=== PATIENT | female | born 1940 | race Caucasian/White ===

== ENCOUNTER → 2016-08-28 10:05 | Day surgery (SDC) | payer MEDICARE, OTHER ==
[~2016-08-28] VITALS: Ht 170.2 cm; Wt 96.4 kg
[2016-08-28 10:49] VITALS: BP 112/83; Ht 170.2 cm; Wt 96.4 kg
== END | disposition home or self-care (01) ==
LOC: D.OPS 10:05
DX: M53.3 Sacrococcygeal disorders, not elsewhere classified (principal)

== ENCOUNTER 2016-09-05 12:56 | Day surgery (SDC) | payer MEDICARE, OTHER ==
[~2016-09-05] VITALS: Ht 170.2 cm; Wt 96.4 kg
[2016-09-05 13:53] VITALS: BP 105/59; Ht 170.2 cm; Wt 96.4 kg
--- NOTE | 2016-09-05 14:37 | NUR ---
1430 SI JOINT INJECTION DONE PER DR. COOPER. PT. TOLERATED WITHOUT PROBLEMS. RELEASED AMB.
== END 2016-09-05 14:35 | disposition home or self-care (01) ==
LOC: D.OPS 12:56
DX: M53.3 Sacrococcygeal disorders, not elsewhere classified (principal)

== ENCOUNTER → 2016-09-12 11:06 | Day surgery (SDC) | payer MEDICARE, OTHER ==
[2016-09-05 13:53] VITALS: BMI 33.3
== END | disposition home or self-care (01) ==
LOC: D.OPS 11:06
DX: M54.5 Low back pain (principal)

== ENCOUNTER 2016-09-18 12:03 | Day surgery (SDC) | payer MEDICARE, OTHER ==
[2016-09-18 16:48] VITALS: Ht 170.2 cm
== END 2016-09-18 13:05 | disposition home or self-care (01) ==
LOC: D.OPS 12:03
DX: M51.16 Intervertebral disc disorders with radiculopathy, lumbar region (principal); M53.3 Sacrococcygeal disorders, not elsewhere classified
CPT/HCPCS: 62322; G0260

== ENCOUNTER → 2017-05-02 07:23 | Outpatient (CLI) | payer MEDICARE, OTHER ==
[~2017-05-02 07:23] MED LIST: ATIVAN2 MG/ML IV; CARDIZEM30 MG PO; COLCRYS0.6 MG PO; CYMBALTA30 MG PO; ELIQUIS5 MG PO; NORVASC5 MG PO; OMEPRAZOLE40 MG PO; ONDANSETRON4 MG/2 M3 IV
== END | disposition home or self-care (01) ==
LOC: D.OPS 07:23 → D.RAD 08:00
DX: M53.3 Sacrococcygeal disorders, not elsewhere classified (principal); Z01.812 Encounter for preprocedural laboratory examination

== ENCOUNTER → 2017-05-16 08:22 | Outpatient (CLI) | payer MEDICARE, OTHER | END | disposition home or self-care (01) | LOC: D.OPS 08:22 → D.RAD 09:00 | DX: M53.3 Sacrococcygeal disorders, not elsewhere classified (principal) ==

== ENCOUNTER → 2017-06-12 09:27 | Outpatient (CLI) | payer MEDICARE, OTHER | END | disposition home or self-care (01) | LOC: D.MRI 09:27 | DX: M79.672 Pain in left foot (principal) ==

== ENCOUNTER → 2017-06-14 08:34 | Outpatient (CLI) | payer MEDICARE, OTHER | END | disposition home or self-care (01) | LOC: D.SP 08:34 | DX: M54.16 Radiculopathy, lumbar region (principal) ==

== ENCOUNTER 2017-07-22 13:00 | Inpatient (IN) | payer MEDICARE, OTHER ==
[~2017-07-22] VITALS: Ht 170.2 cm; Wt 91.7 kg
--- NOTE | ~2017-07-22 | HEMODYNAMI ---
PATIENT:JORGE LINTON MEDICAL RECORD: [id number] : 44 LOCATION:[facility] D.2311 ADMISSION DATE: 07/23/17 Generatedon:07/26/201715:31 Patient name: JORGE LINTON Patient #: [id number] SSN: : Date of study: 07/26/2017 Page: Of Hemodynamic Procedure Report Patient Data Patient Demographics Procedure consent was obtained First Name: JORGE Gender: Female Last Name: : 1940 [facility] Initial: CY Age: 76 year(s) Patient #: [id number] Race: Unknown Additional ID: [id number] Contact details Address: [address] [place] [address] point State: [place] City: [place] Zip code: [address] Past Medical History Allergies Allergen Reaction Date Comments Reported Sulfa drugs 07/24/2017 Sulfa drugs 07/25/2017 Sulfa drugs 07/26/2017 Admission Admission Data Admission Date: 07/23/2017 Admission Time: 14:53 Room #: D.2311 Height (in.): 67 BSA: 2.02 (m2) Height (cm.): 170.18 BMI: 31.17 (kg/m2) Weight (lbs.): 199 Weight (kg.): 90.26 Procedure Procedure Types Cath Procedure Peripheral Cath Diagnostic Procedure Cath Peripheral Abd/Extremity Peripheral vascular Intervention Thrombolysis/Thrombectomy Thrombolysis Catheter Removal Procedure Description Procedure Date Procedure Date: 07/26/2017 Procedure Start Time: 14:41 Procedure Staff Name Function Brian Evangelista MD Performing Physician Emani Sadler RT Irrigation Tax Assessor Collector Emani Sadler RT Monitor Noemi Ceballos RN Nurse Roopa Solo RN Nurse Connie Valdez RT Scrub Procedure Data Cath Procedure Fluoroscopy Diagnostic fluoroscopy Total fluoroscopy Time: 0.9 time: 0.9 min min Diagnostic fluoroscopy Total fluoroscopy dose: 60 dose: 60 mGy mGy Contrast Material Contrast Material Type Amount (ml) Isovue 300 40 Procedure Medications Medication Administration Route Dosage Lidocaine 1% added to field 20 Heparin Flush Bag added to field 2 bags (1000units/500ml NS) Oxygen NC 3 l/min Ancef (1Gm/50ml NS) I.V.P.B 1 g Versed I.V. 1 mg Fentanyl I.V. 50 mcg Versed I.V. 1 mg Fentanyl I.V. 50 mcg Hemodynamics Rest BSA: 2.02 (m2) O2 Consumption: Estimated: 221.86 (ml/min) O2 Consumption indexed : Estimated:109.83 (ml/min/m) Heart Rate: 119 (bpm) Snapshots Pre Cath Intra NCS Post Cath Vital Signs Time Heart Resp SPO2 etCO2 NIBP (mmHg) Rhythm Pain Sedation Rate (ipm) (%) (mmHg) Status Level (bpm) 14:16:43 120 19 94 34.4 159/85(120) NSR 0 (11) 10(A) , No pain 14:20:59 119 16 95 8.9 162/92(122) NSR 0 (11) 10(A) , No pain 14:25:13 116 19 99 0 155/102(122) NSR 0 (11) 10(A) , No pain 14:29:25 115 18 95 13.4 161/96(122) NSR 0 (11) 10(A) , No pain 14:33:39 109 16 93 0 149/88(117) NSR 0 (11) 10(A) , No pain 14:37:51 110 26 93 9.7 153/87(118) NSR 0 (11) 10(A) , No pain 14:42:05 111 17 93 2.9 152/83(115) NSR 0 (11) 10(A) , No pain 14:46:19 114 24 89 2.9 162/94(120) NSR 0 (11) 8(A) , No pain 14:50:26 112 16 86 16.4 149/89(106) NSR 0 (11) 8(A) , No pain 14:54:34 109 17 94 1.4 134/83(101) NSR 0 (11) 8(A) , No pain 14:58:44 116 23 85 0.7 141/79(108) NSR 0 (11) 8(A) , No pain 15:02:54 112 20 87 0 139/81(104) NSR 0 (11) 8(A) , No pain 15:07:02 115 23 88 0 135/87(103) NSR 0 (11) 8(A) , No pain 15:11:12 112 20 90 8.2 142/86(105) NSR 0 (11) 8(A) , No pain 15:15:18 108 23 90 0.7 144/88(103) NSR 0 (11) 8(A) , No pain 15:19:27 107 25 91 0.7 146/86(106) NSR 0 (11) 8(A) , No pain 15:23:40 111 21 90 11.9 143/88(101) NSR 0 (11) 8(A) , No pain 15:27:54 112 18 93 1.4 152/88(120) NSR 0 (11) 8(A) , No pain Medications Time Medication Route Dose Verified Delivered Reason Notes Effe ctiveness by by 14:27:37 Lidocaine 1% added 20ml Brian Torres used for to vial Tonja Evangelista procedure field MD COHEN 14:27:51 Heparin Flush added 2 Brian Torres used for Bag to bags Tonja Evangelista procedure (1000units/500ml field MD COHEN NS) 14:28:06 Oxygen NC 3 Brian Blas used for l/min Tonja Solo RN procedure 14:42:28 Ancef (1Gm/50ml I.V.P.B 1 g Brian Blas NS) Tonja Solo RN, MD 14:42:40 Versed I.V. 1 mg Brian Blas for Tonja Solo RN sedation 14:42:50 Fentanyl I.V. 50 Brian Blas for mcg Tonja Solo RN sedation 14:56:37 Versed I.V. 1 mg Brian Blas for Tonja Solo RN sedation 14:56:44 Fentanyl I.V. 50 Brian Blas for mcg Tonja Solo RN sedation Procedure Log Time Note 13:50:57 Patient Height : 67 inches 13:50:57 Patient Weight : 199 lbs 13:51:22 Use device set IR Diagnostic 14:09:24 Time tracking: Regular hours (M-F 7:00 - 5:00) 14:09:32 Plan of Care:Hemodynamics will remain stable., Cardiac rhythm will remain stable., Comfort level will be maintained., Respiratory function will remain adequate., Patient/ family verbilizes understanding of procedure., Procedure tolerated without complication., Recovers from procedure without complications.. 14:15:27 Patient received from ICU to IR Alert and oriented. Tansferred to table in Supine position. 14:15:31 Correct patient and procedure confirmed by team. 14:15:33 Signed procedure consent form obtained from patient. 14:15:34 ECG and BP/O2 sat monitors applied to patient. 14:15:35 Vital chart was started 14:15:36 Baseline sample Acquired. 14:15:38 Full Disclosure recording started 14:15:38 - 14:15:44 H&P Date Dictated: 07/26/2017 Within 30 days and on chart.. 14:15:52 Family unavailable. 14:15:54 Patient NPO since Midnight. 14:16:10 Patient allergic to Sulfa drugs 14:16:18 Is the patient allergic to Iodine/contrast media? No. 14:16:23 Is patient on blood thinner?Yes 14:16:31 Patient diabetic? No. 14:16:35 - 14:16:35 ----Pre-sedation anethsthesia assessment.---- 14:16:39 Previous problem with sedation/anesthesia? No ? 14:16:42 Snore? Yes 14:16:46 Sleep apnea? No 14:16:48 Deviated septum? No 14:16:49 Opens mouth fully? Yes 14:16:50 Sticks out tongue? Yes 14:16:55 Airway obstruction? No ? 14:17:00 Dentures? No ? 14:17:03 - 14:17:10 Pre procedure: right dorsailis pedis pulse Doppler 14:17:14 Pre procedure: left dorsailis pedis pulse Doppler 14:17:18 Pre procedure: right posterior tibial pulse Doppler 14:17:22 Pre procedure: left posterior tibial pulse Doppler 14:17:36 IV patent on arrival in left antecubital with Lactated Ringers at KVO. 14:17:55 Left groin area was prepped with betadine and draped in sterile fashion 14:18:00 - 14:18:02 Tegaderm 4 x 4 (1626W) opened to sterile field. 14:18:02 Sterile Angiographic Pack opened to sterile field. 14:18:03 Bag Decanter (2002S) opened to sterile field. 14:27:37 Lidocaine 1% 20ml vial added to field was administered by Brian soares MD; used for procedure; 14:27:51 Heparin Flush Bag (1000units/500ml NS) 2 bags added to field was administered by Brian Evangelista MD; used for procedure; 14:28:06 Oxygen 3 l/min NC was administered by Roopa Solo RN; used for procedure; 14:37:14 Physician arrived 14:40:54 --------ALL STOP TIME OUT------ 14:40:55 Final Timeout: patient, procedure, and site verified with staff and physician. All members of the team are in agreement. 14:41:05 Procedure started. 14:41:10 Local anesthetic to left femerol artery with Lidocaine 1% by Brian Evangelista MD.INITIAL ACCESS ONLY 14:42:28 Ancef (1Gm/50ml NS) 1 g I.V.P.B was administered by Roopa Solo RN; ; 14:42:40 Versed 1 mg I.V. was administered by Roopa Solo RN; for sedation; 14:42:50 Fentanyl 50 mcg I.V. was administered by Roopa Solo RN; for sedation ; 14:51:49 BENTSON 145cm wire ([id number]) opened to sterile field. 14:51:50 St Scout 7FR sheath opened to sterile field. 14:52:08 EXOSEAL 7Fr (EX700) opened to sterile field. 14:52:38 Angiogram performed in multiple views. 14:53:38 Procedure ended.(Physican Out) 14:53:44 Fluoroscopy time 00.90 minutes. 14:53:49 Fluoroscopy dose: 60 mGy 14:53:49 Flurop Dose total: 60 14:53:53 Contrast amount:Isovue 300 40ml. 14:53:56 Procedure and supply charges have been captured, reviewed, submitted an d are correct. 14:56:37 Versed 1 mg I.V. was administered by Roopa Solo RN; for sedation; 14:56:44 Fentanyl 50 mcg I.V. was administered by Roopa Solo RN; for sedation ; 15:30:44 Report given to ICU. 15:30:55 Patient transfered to ICU with Bed. 15:31:38 Vital chart was stopped Device Usage Item Name Manufacture Quantity Catalog Hospital Part Current Minimal Lot# / Number Charge Number Stock Stock Serial# Code Tegaderm 4 x 3M 1 [id number] [id number] 5 4 (1626W) Sterile Cardinal 1 [id number] [id number] 061706 5 Angiographic Health Pack Bag Decanter Microtek 1 2001S 922755 13276 176578 5 (2001S) Medical Inc. BENTSON Cook Medical 1 [id number] 241010 701184 5 9862382 145cm wire (U23938) St Scout 7FR St Scout 1 053738 859618 575678 5 2686301 sheath EXOSEAL 7Fr Cardinal 1 EX700 140974 227197 935567 5 [id number] (EX700) Health Signature Audit [place] Stage Time Signature Unsigned Intra-Procedure 07/26/2017 Emani Sadler 3:31:35 PM RT(R) Signatures Monitor : Emani Sadler RT Signature : Date : Time : [address] [place] [address]
--- NOTE | ~2017-07-22 | HEMODYNAMI ---
PATIENT:JORGE LINTON MEDICAL RECORD: [id number] : 44 LOCATION:[place] [address] ADMISSION DATE: 07/23/17 Generatedon:07/25/201716:38 Patient name: JORGE LINTON Patient #: [id number] SSN: : Date of study: 07/25/2017 Page: Of Hemodynamic Procedure Report Patient Data Patient Demographics Procedure consent was obtained First Name: JORGE Gender: Female Last Name: : 1940 [facility] Initial: CY Age: 76 year(s) Patient #: [id number] Race: Unknown Additional ID: [id number] Contact details Address: [address] [place] [address] point State: [place] City: [place] Zip code: [address] Past Medical History Allergies Allergen Reaction Date Comments Reported Sulfa drugs 07/24/2017 Sulfa drugs 07/25/2017 Admission Admission Data Admission Date: 07/23/2017 Admission Time: 14:53 Room #: D[facility] Height (in.): 67 BSA: 2.02 (m2) Height (cm.): 170.18 BMI: 31.17 (kg/m2) Weight (lbs.): 199 Weight (kg.): 90.26 Procedure Procedure Types Cath Procedure Peripheral Cath Diagnostic Procedure Cath Peripheral Peripheral vascular Intervention Thrombolysis/Thrombectomy Thrombolysis Arterial Additional Day Procedure Description Procedure Date Procedure Date: 07/25/2017 Procedure Start Time: 14:48 Procedure Staff Name Function Brian Evangelista MD Performing Physician Emani Sadler RT Grain Mill Products Inspector Emani Sadler RT Monitor Noemi Ceballos RN Nurse Roopa Solo RN Nurse Elroy Evans RT Scrub Procedure Data Cath Procedure Fluoroscopy Diagnostic fluoroscopy Total fluoroscopy Time: time: 18.7 min 18.7 min Diagnostic fluoroscopy Total fluoroscopy dose: 668 dose: 668 mGy mGy Contrast Material Contrast Material Type Amount (ml) Isovue 370 0 Isovue 300 85 Procedure Medications Medication Administration Route Dosage Heparin Flush Bag added to field 2 bags (1000units/500ml NS) Versed I.V. 1 mg Fentanyl I.V. 50 mcg Oxygen NC 3 l/min Versed I.V. 1 mg Fentanyl I.V. 50 mcg Versed I.V. 1 mg Fentanyl I.V. 50 mcg unlisted medication 1 bags Heparin Bolus I.V. 3000 units Benadryl I.V. 50 mg Versed I.V. 1 mg Fentanyl I.V. 50 mcg Versed I.V. 1 mg Fentanyl I.V. 50 mcg Versed I.V. 1 mg Fentanyl I.V. 50 mcg TPA 15 Heparin Drip 500 units/hr (27455gpqnw/250 D5W) Hemodynamics Rest BSA: 2.02 (m2) O2 Consumption: Estimated: 202.2 (ml/min) O2 Consumption indexed: Estimated:100.1 (ml/min/m) Heart Rate: 93 (bpm) Snapshots Pre Cath Intra NCS Post Cath Vital Signs Time Heart Resp SPO2 etCO2 NIBP (mmHg) Rhythm Pain Status Sedation Rate (ipm) (%) (mmHg) Level (bpm) 14:39:54 92 10 97 19.5 176/98(138) NSR 0 (11) , No 10(A) pain 14:44:22 92 17 96 28.6 169/98(134) NSR 0 (11) , No 10(A) pain 14:48:42 95 15 96 23.3 168/97(132) NSR 0 (11) , No 10(A) pain 14:53:03 92 18 97 21 164/99(129) NSR 0 (11) , No 10(A) pain 14:57:23 95 19 96 20.3 166/99(140) NSR 0 (11) , No 10(A) pain 15:01:43 90 15 95 16.5 164/99(126) NSR 0 (11) , No 10(A) pain 15:06:03 95 13 96 26.3 164/99(134) NSR 0 (11) , No 10(A) pain 15:10:17 90 13 95 13.5 155/93(124) NSR 0 (11) , No 10(A) pain 15:14:33 93 13 96 20.3 154/95(126) NSR 0 (11) , No 8(A) pain 15:18:49 92 16 96 21.8 152/94(119) NSR 0 (11) , No 8(A) pain 15:23:07 93 14 96 28.5 156/100(125) NSR 2 (11) , 8(A) Uncomfortable 15:27:23 99 13 95 15.7 153/98(128) NSR 0 (11) , No 8(A) pain 15:31:37 103 16 92 19.5 155/99(132) NSR 1 (11) , Very 8(A) mild 15:35:57 100 16 94 24.8 160/102(124) NSR 1 (11) , Very 8(A) mild 15:40:20 103 8 95 18.8 162/112(136) NSR 0 (11) , No 8(A) pain 15:44:37 98 15 93 9.7 170/113(141) NSR 1 (11) , Very 8(A) mild 15:49:04 113 15 92 0 169/113(146) NSR 2 (11) , 8(A) Uncomfortable 15:53:30 111 20 94 20.3 168/111(150) NSR 2 (11) , 8(A) Uncomfortable 15:57:46 108 13 92 15.7 148/109(135) NSR 0 (11) , No 8(A) pain 16:01:54 110 14 92 18 142/102(128) NSR 0 (11) , No 8(A) pain 16:06:53 113 17 93 18.8 Measuring NSR 0 (11) , No 8(A) pain 16:07:18 111 19 93 16.5 160/107(140) NSR 1 (11) , Very 8(A) mild 16:11:32 109 17 94 17.2 156/99(127) NSR 1 (11) , Very 8(A) mild 16:15:56 111 17 94 18.8 149/128(139) NSR 1 (11) , Very 8(A) mild 16:20:55 109 16 94 18.8 Measuring NSR 1 (11) , Very 8(A) mild 16:21:21 112 15 94 10.5 182/119(154) NSR 1 (11) , Very 8(A) mild 16:25:46 110 16 94 15 160/102(139) NSR 1 (11) , Very 8(A) mild 16:30:45 110 15 93 9 Measuring NSR 1 (11) , Very 8(A) mild 16:31:11 110 15 93 12 153/111(127) NSR 1 (11) , Very 8(A) mild 16:35:23 107 13 93 15.7 152/106(137) NSR 1 (11) , Very 8(A) mild Medications Time Medication Route Dose Verified Delivered Reason Notes Ef fectiveness by by 14:50:56 Heparin Flush added 2 bags Brian Torres used for Bag to Tonja Evangelista procedure (1000units/500ml field MD COHEN NS) 14:51:29 Versed I.V. 1 mg Brian Roopa used for Tonja Solo rehabilitation psychologist 14:51:43 Fentanyl I.V. 50 mcg Brian Roopa for Tonja Solo RN sedation 14:52:01 Oxygen NC 3 l/min Brian Solo RN 15:07:07 Versed I.V. 1 mg Brian Cervantesody used for Tonja Solo rehabilitation psychologist 15:07:13 Fentanyl I.V. 50 mcg Brian Cervantesody for Tonja Solo RN sedation 15:26:46 Versed I.V. 1 mg Brian Cervantesody for Tonja Solo RN sedation 15:26:54 Fentanyl I.V. 50 mcg Brian Roopa for Tonja Blountr RN sedation 15:27:50 JETSTREAM IA 1 bags Brian Torres used for Tonja Evangelista procedure MD COHEN 15:45:45 Heparin Bolus I.V. 3000 Brian Cervantesody units Tonja Solo RN 15:45:58 Benadryl I.V. 50 mg Brian Cervantesody Tonja Solo RN 15:54:38 Versed I.V. 1 mg Brian Roopa for Tonja Blountr RN sedation 15:54:46 Fentanyl I.V. 50 mcg Brian Roopa for Tonja Blountr RN sedation 16:09:48 Versed I.V. 1 mg Brian Roopa for Tonja Blountr RN sedation 16:09:55 Fentanyl I.V. 50 mcg Brian Cervantesody for Tonja Blountr RN sedation 16:11:44 Versed I.V. 1 mg Brian Blas for Tonja Solo RN sedation 16:11:51 Fentanyl I.V. 50 mcg Brian Blas for Tonja Solo RN sedation 16:28:46 TPA IA 15 mL/HR Brian Solo RN, MD 16:29:07 Heparin Drip IA 500 Brian Blas (30694glloo/250 units/hr Tonja Solo RN D5W) Procedure Log Time Note 14:13:27 Patient Height : 67 inches 14:13:27 Patient Weight : 199 lbs 14:13:43 Use device set IR Diagnostic 14:26:39 Sterile Angiographic Pack opened to sterile field. 14:26:40 Bag Decanter (2002S) opened to sterile field. 14:26:45 Time tracking: Regular hours (M-F 7:00 - 5:00) 14:27:09 Plan of Care:Hemodynamics will remain stable., Cardiac rhythm will remain stable., Comfort level will be maintained., Respiratory function will remain adequate., Patient/ family verbilizes understanding of procedure., Procedure tolerated without complication., Recovers from procedure without complications.. 14:27:16 Patient received from ICU to IR Alert and oriented. Tansferred to table in Supine position. 14:27:22 Signed procedure consent form obtained from patient. 14:27:28 H&P Date Dictated: 07/25/2017 Within 30 days and on chart.. 14:27:32 Pre-procedure instructions explained to patient. 14:27:32 Pre-op teaching completed and patient verbalized understanding. 14:27:35 Family unavailable. 14:27:37 Patient NPO since Midnight. 14:27:39 - 14:28:00 Patient allergic to Sulfa drugs 14:28:08 Is the patient allergic to Iodine/contrast media? No. 14:28:14 Is patient on blood thinner?Yes 14:28:30 ACC The patient was administered the following blood thiners within the last 24 hours: ACCHeparin 14:28:46 Patient diabetic? No. 14:28:48 - 14:28:51 ----Pre-sedation anethsthesia assessment.---- 14:28:54 Previous problem with sedation/anesthesia? No ? 14:28:57 Snore? Yes 14:29:00 Sleep apnea? No 14:29:06 Deviated septum? No 14:29:10 Opens mouth fully? Yes 14:29:14 Sticks out tongue? Yes 14:29:20 Airway obstruction? No ? 14:29:26 Dentures? No ? 14:29:29 - 14:29:49 Pre procedure: right dorsailis pedis pulse Doppler 14:29:55 Pre procedure: left dorsailis pedis pulse Doppler 14:30:01 Pre procedure: right posterior tibial pulse Doppler 14:30:06 Pre procedure: left posterior tibial pulse Doppler 14:30:20 IV patent on arrival in left forearm with D5/.45%NaCl at [facility]. 14:31:03 Left groin area was prepped with betadine and draped in sterile fashion 14:38:33 ECG and BP/O2 sat monitors applied to patient. 14:38:34 Vital chart was started 14:38:36 Baseline sample Acquired. 14:38:38 Full Disclosure recording started 14:38:39 - 14:46:03 Physician arrived 14:48:05 --------ALL STOP TIME OUT------ 14:48:06 Final Timeout: patient, procedure, and site verified with staff and physician. All members of the team are in agreement. 14:48:32 Procedure started. 14:48:47 Local anesthetic to left femerol artery with Lidocaine 1% by Brian Evangelista MD.INITIAL ACCESS ONLY 14:50:56 Heparin Flush Bag (1000units/500ml NS) 2 bags added to field was administered by Brian Evangelista MD; used for procedure; 14:51:29 Versed 1 mg I.V. was administered by Roopa Sool RN; used for procedure; 14:51:43 Fentanyl 50 mcg I.V. was administered by Roopa Solo RN; for sedation ; 14:52:01 Oxygen 3 l/min NC was administered by Roopa Solo RN; ; 14:54:00 BENTSON 260 wire (U86387) opened to sterile field. 14:56:04 ROADRUNNER .035 260 glide wire (K58918) opened to sterile field. 14:56:06 CXI SUPPORT .035 135 CM STR catheter (O94344) opened to sterile field. 15:06:23 AMPLATZ Super stiff 260cm wire ([id number]) opened to sterile field. 15:06:35 Cook RAABE 7FR.90CM guide sheath opened to sterile field. 15:07:07 Versed 1 mg I.V. was administered by Roopa Solo RN; used for procedure; 15:07:13 Fentanyl 50 mcg I.V. was administered by Roopa Solo RN; for sedation ; 15:09:17 CHOICE PT Extra Support J 300cm guide wire ([id number]) opened to steril e field. 15:09:49 SPIDER EMBOLIC PROTECTION DEVICE 4MM ([id number]) opened to sterile field. 15:13:50 JETSTREAM 2.4/3.4mm Atherectomy catheter (SR27028) opened to sterile field. 15:26:46 Versed 1 mg I.V. was administered by Roopa Solo RN; for sedation; 15:26:54 Fentanyl 50 mcg I.V. was administered by Roopa Solo RN; for sedation ; 15:27:50 JETSTREAM 1 bags IA was administered by Brian Evangelista MD; used for procedure; 15:28:34 INFLATOR BasixTOUCH (HN0114) opened to sterile field. 15:44:00 Inflate balloon Inflation number: 1 A Kane Plus 4 x 120 x 130 Balloo n ([id number]) was prepped and advanced across the Undefined1, then inflated . 15:45:45 Heparin Bolus 3000 units I.V. was administered by Roopa Solo RN; ; 15:45:58 Benadryl 50 mg I.V. was administered by Roopa Solo RN; ; 15:54:38 Versed 1 mg I.V. was administered by Roopa Solo RN; for sedation; 15:54:46 Fentanyl 50 mcg I.V. was administered by Roopa Solo RN; for sedation ; 15:59:30 CHOICE PT Extra Support J 300cm guide wire ([id number]) opened to steril e field. 16:03:07 COPILOT Valve Control (6044664) opened to sterile field. 16:09:48 Versed 1 mg I.V. was administered by Roopa Solo RN; for sedation; 16:09:55 Fentanyl 50 mcg I.V. was administered by Roopa Solo RN; for sedation ; 16:11:44 Versed 1 mg I.V. was administered by Roopa Solo RN; for sedation; 16:11:51 Fentanyl 50 mcg I.V. was administered by Roopa Solo RN; for sedation ; 16:16:22 Tegaderm 6 x 8 (1628) opened to sterile field. 16:16:23 Tegaderm 6 x 8 (1628) opened to sterile field. 16:16:24 Tegaderm 6 x 8 (1628) opened to sterile field. 16:16:56 INFUSION CATHETER [facility]cm [facility]ton[facility] (5969750) opened to sterile field . 16:17:39 Procedure ended.(Physican Out) 16:17:57 Fluoroscopy time 18.70 minutes. 16:18:13 Fluoroscopy dose: 668 mGy 16:18:13 Flurop Dose total: 668 16:18:25 Contrast amount:Isovue 370 0ml. 16:19:20 Contrast amount:Isovue 300 85ml. 16:19:22 Procedure and supply charges have been captured, reviewed, submitted an d are correct. 16:28:46 TPA 15 mL/HR IA was administered by Roopa Solo RN; ; 16:29:07 Heparin Drip (90060ezglu/250 D5W) 500 units/hr IA was administered by Roopa Solo RN; ; 16:37:53 Report given to ICU. 16:37:58 Patient transfered to ICU with Bed. 16:38:25 Vital chart was stopped Intervention Summary Intervention Notes Time ActionType Lesion and Equipment Used Action# Pressure Duration Attributes 15:44:00 Inflate Undefined1 Kane Plus 4 1 0 00:00 balloon x 120 x 130 Balloon ([id number]) Device Usage Item Name Manufacture Quantity Catalog Number Hospital Part Current Minimal Lot# / Charge Number Stock Stock Serial# Code Sterile Cardinal 1 [id number] 927230 5 Angiographic Health Pack Bag Decanter Microtek 1 308815 26598 899009 5 () Medical Inc. BENTSON 260 Cook Medical 1 [id number] 308896 308812 595251 5 wire (C34401) ROADRUNNER Cook Medical 1 T97651 516394 011125 884932 5 4277421 .035 260 glide wire (T43133) CXI SUPPORT [place] Medical 1 [id number] 020580 695777 453368 5 [id number] .035 135 CM STR catheter (F26481) AMPLATZ Super [place] 1 [id number] 178603 52724 385179 5 stiff 260cm Scientific wire ([id number]) Cook [facility] Medical 1 Y22673 507243 554702 5 7FR.90CM guide sheath CHOICE PT [place] 2 [id number] 510158 258077 271984 5 Extra Support Scientific J 300cm guide wire ([id number]) SPIDER EMBOLIC Medtronic 1 [id number] 783371 201466 5 PROTECTION DEVICE 3MM ([id number]) JETSTREAM [place] 1 [id number] 888753 817693 5 2.4/3.4mm Scientific Atherectomy catheter (LF36502) INFLATOR Merit 1 OH5467 099188 769101 833666 5 BasCodbod Technologies Medical (LV2187) Kane Plus 4 Medtronic 1 [id number] 602789 367026 342239 5 [id number] x 120 x 130 Balloon ([id number]) COPILOT Valve Shi 1 [id number] 290985 358123 698002 5 Control Vascular (1897529) Tegaderm 6 x 8 3M 3 1628 936782 358134 5 (1628) INFUSION Medtronic 1 28725-51 517709 426465 5 CATHETER 10cm Dory (8644255) Signature Audit [place] Stage Time Signature Unsigned Intra-Procedure 07/25/2017 Emani Sadler 4:38:21 PM RT(R) Signatures Monitor : Emani Sadler RT Signature : Date : Time : [place] [id number] [place] [address]
--- NOTE | ~2017-07-22 | HEMODYNAMI ---
PATIENT:JORGE LINTON MEDICAL RECORD: [id number] : 44 [facility] ADMISS[facility] DATE: 07/23/17 Generatedon:07/24/201715:09 Patient name: JORGE LINTON Patient #: [id number] SSN: : Date of study: 07/24/2017 Page: Of Hemodynamic Procedure Report Patient Data Patient Demographics Procedure consent was obtained First Name: JORGE Gender: Female Last Name: : 1940 [facility] Initial: CY Age: 76 year(s) Patient #: [id number] Race: Unknown Additional ID: [id number] Contact details [address]: [address] [place] [address] point State: [place] City: [place] Zip code: [address] Past Medical History Allergies Allergen Reaction Date Comments Reported Sulfa drugs 07/24/2017 Admission Admission Data Admission Date: 07/23/2017 Admission Time: 14:53 [facility] Height (in.): 67 BSA: 2.02 (m2) Height (cm.): 170.18 BMI: 31.17 (kg/m2) Weight (lbs.): 199 Weight (kg.): 90.26 Procedure Procedure Types Cath Procedure Peripheral Cath Diagnostic Procedure Cath Peripheral Abd/Extremity Extremities Bilat Lower Extremity Procedure Description Procedure Date Procedure Date: 07/24/2017 Procedure Start Time: 13:18 Procedure Staff Name Function Yoshi Allred MD Performing Physician Emani Sadler RT Director Construction Services Emani Sadler RT Monitor Noemi Ceballos RN Nurse Roopa Solo RN Nurse Elroy Evans RT Scrub Procedure Data Cath Procedure Fluoroscopy Diagnostic fluoroscopy Total fluoroscopy Time: 0 time: 0 min min Diagnostic fluoroscopy Total fluoroscopy dose: 327 dose: 327 mGy mGy Contrast Material Contrast Material Type Amount (ml) Isovue 300 65 Diagnostic catheters Device Type Used For End Catheter Placement Merit UHF Pigtail VESSEL SIZING 5Fr 65CM catheter ([id number]) Procedure Medications Medication Administration Route Dosage Versed I.V. 0.5 mg Fentanyl I.V. 25 mcg Heparin Flush Bag added to field 3 bags (1000units/500ml NS) Lidocaine 1% added to field 20 Lidocaine 1% added to field 20 Versed I.V. 0.5 mg Fentanyl I.V. 25 mcg Versed I.V. 0.5 mg Fentanyl I.V. 25 mcg Heparin Bolus I.V. 5000 units Fentanyl I.V. 25 mcg Versed I.V. 0.5 mg Activase(12.5mg/250 I.A. 20 ml/hr NS) Heparin Drip 500 units/hr (98542oapsw/250 D5W) Integrilin (Bolus I.V. 8 ml 2mg/ml) Integrilin Drip I.V. drip 6 ml/hr (75mg/100ml) Hemodynamics Rest BSA: 2.02 (m2) O2 Consumption: Estimated: 190.58 (ml/min) O2 Consumption indexed : Estimated:94.35 (ml/min/m) Heart Rate: 78 (bpm) Snapshots Pre Cath Intra NCS Post Cath Vital Signs Time Heart Resp SPO2 etCO2 NIBP (mmHg) Rhythm Pain Sedation Rate (ipm) (%) (mmHg) Status Level (bpm) 13:04:07 79 16 96 17.2 155/78(121) NSR 0 (11) 10(A) , No pain 13:08:27 86 18 96 21 146/82(126) NSR 0 (11) 10(A) , No pain 13:12:45 78 27 96 26.3 148/83(120) NSR 0 (11) 10(A) , No pain 13:17:03 80 17 95 24 148/83(121) NSR 0 (11) 10(A) , No pain 13:21:23 83 17 96 25.5 152/76(120) NSR 0 (11) 10(A) , No pain 13:25:39 85 14 96 33.1 148/82(111) NSR 0 (11) 10(A) , No pain 13:29:57 78 14 95 18.8 140/80(118) NSR 0 (11) 10(A) , No pain 13:34:17 77 14 96 21.8 153/81(119) NSR 0 (11) 8(A) , No pain 13:38:37 78 14 96 16.5 149/83(121) NSR 0 (11) 8(A) , No pain 13:42:55 76 13 96 18 146/80(114) NSR 0 (11) 8(A) , No pain 13:47:09 78 16 96 18 144/74(115) NSR 0 (11) 8(A) , No pain 13:51:26 75 15 96 16.5 143/81(117) NSR 0 (11) 8(A) , No pain 13:55:39 80 46 96 15.7 146/82(116) NSR 0 (11) 8(A) , No pain 13:59:56 79 14 97 23.3 142/83(119) NSR 0 (11) 8(A) , No pain 14:04:14 71 14 97 13.5 151/80(122) NSR 0 (11) 8(A) , No pain 14:08:34 76 34 98 24.8 156/83(121) NSR 0 (11) 8(A) , No pain 14:12:54 75 13 95 8.2 157/82(134) NSR 0 (11) 8(A) , No pain 14:17:10 81 11 96 10.5 154/90(122) NSR 0 (11) 8(A) , No pain 14:21:28 76 13 96 21 156/90(123) NSR 0 (11) 8(A) , No pain 14:25:48 74 17 96 27 160/85(127) NSR 0 (11) 8(A) , No pain 14:30:12 73 16 97 21 167/90(132) NSR 0 (11) 8(A) , No pain 14:34:34 76 14 97 23.3 164/85(122) NSR 0 (11) 8(A) , No pain 14:38:55 73 10 98 18 164/91(135) NSR 0 (11) 8(A) , No pain 14:43:17 77 14 98 29.3 171/94(127) NSR 0 (11) 8(A) , No pain 14:47:39 79 13 98 21.8 167/90(141) NSR 0 (11) 8(A) , No pain 14:52:03 75 8 98 19.5 161/88(135) NSR 0 (11) 8(A) , No pain 14:56:23 74 5 98 12 164/98(129) NSR 0 (11) 8(A) , No pain 15:00:45 74 16 99 9.7 167/91(142) NSR 0 (11) 8(A) , No pain 15:05:04 72 19 18.8 165/96(130) NSR 0 (11) 8(A) , No pain Medications Time Medication Route Dose Verified Delivered Reason Not es Effectiveness by by 13:21:23 Versed I.V. 0.5 mg Yoshi Roopa for Allred Edil RN sedation 13:21:33 Fentanyl I.V. 25 mcg Yoshi Roopa for Allred Edil RN sedation 13:21:54 Heparin Flush Bag added 3 bags Yoshi Yoshi used for (1000units/500ml to Allerd Allred procedure NS) field MD COHEN 13:22:07 Lidocaine 1% added 20ml vial Yoshi Yoshi used for to Allred Allred procedure field MD COHEN 13:22:15 Lidocaine 1% added 20ml vial Yoshi Yoshi used for to Allred Allred procedure field MD COHNE 13:39:42 Versed I.V. 0.5 mg Yoshi Belle for Allred Allred sedation MD COHEN 13:39:48 Fentanyl I.V. 25 mcg Yoshi Belle for Allred Allred sedation MD COHEN 14:07:50 Versed I.V. 0.5 mg Yoshi Belle for Allred Allred sedation MD COHEN 14:07:57 Fentanyl I.V. 25 mcg Yoshi Belle for Allred Allred sedation MD COHEN 14:11:31 Heparin Bolus I.V. 5000 units Yoshi Roopa used for Allred Edil pediatric ophthalmologist 14:14:37 Fentanyl I.V. 25 mcg Yoshi Cervantesody for Allred Edil RN sedation 14:14:44 Versed I.V. 0.5 mg Yoshi Roopa for Allred Edil RN sedation 15:05:14 Activase(12.5mg/250 I.A. 20 ml/hr Roopa Roopa used for NS) Edil Edil pediatric ophthalmologist RN 15:07:10 Heparin Drip I.A. 500units/hr Roopa Roopa used for (48571szhnp/250 drip Edil Solo RN procedure D5W) RN 15:07:54 Integrilin (Bolus I.V. 8 ml Yoshi Blas 2mg/ml) Brigida Solo RN, MD 15:08:27 Integrilin Drip I.V. 6 ml/hr Yoshi Roopa (75mg/100ml) willi Solo RN, MD Procedure Log Time Note 12:31:30 Patient Weight : 199 lbs 12:31:33 Patient Height : 67 inches 12:32:15 Use device set IR Diagnostic 12:50:41 Time tracking: Regular hours (M-F 7:00 - 5:00) 12:50:50 Plan of Care:Hemodynamics will remain stable., Cardiac rhythm will remain stable., Comfort level will be maintained., Respiratory function will remain adequate., Patient/ family verbilizes understanding of procedure., Procedure tolerated without complication., Recovers from procedure without complications.. 12:51:05 Patient received from Med/Surg to IR Alert and oriented. Tansferred to table in Supine position. 12:51:09 Signed procedure consent form obtained from patient. 12:51:16 H&P Date Dictated: 07/24/2017 Within 30 days and on chart.. 12:51:18 Pre-procedure instructions explained to patient. 12:51:18 Pre-op teaching completed and patient verbalized understanding. 12:51:21 Family in waiting room. 12:51:24 Patient NPO since Midnight. 12:51:39 Patient allergic to Sulfa drugs 12:51:46 Is the patient allergic to Iodine/contrast media? No. 12:51:49 Is patient on blood thinner?Yes 12:51:55 ACC The patient was administered the following blood thiners within the last 24 hours: ACCLovenox 12:52:03 Patient diabetic? No. 12:52:06 - 12:52:09 ----Pre-sedation anethsthesia assessment.---- 12:52:14 Previous problem with sedation/anesthesia? No ? 12:52:16 Snore? Yes 12:52:18 Sleep apnea? No 12:52:32 Deviated septum? No 12:52:35 Opens mouth fully? Yes 12:52:37 Sticks out tongue? Yes 12:52:40 Airway obstruction? No ? 12:52:44 Dentures? No ? 12:52:54 Pre procedure: right dorsailis pedis pulse Doppler 12:52:59 Pre procedure: left dorsailis pedis pulse Doppler 12:53:04 Pre procedure: right posterior tibial pulse Doppler 12:53:11 Pre procedure: left posterior tibial pulse Doppler 12:53:27 IV patent on arrival in left forearm with D5/.45%NaCl at [facility]. 12:53:35 Left groin area was prepped with chlora-prep and draped in sterile fashion 13:02:29 TUBING Contrast Injection High Pressure ([id number]) opened to sterile field. 13:02:30 DOC .035 wire (J83171) opened to sterile field. 13:02:31 SHEATH 5FR Cecil (MPD043) opened to sterile field. 13:02:32 MOLINA 260 wire (P36894) opened to sterile field. 13:02:33 PERCUTANEOUS ENTRY 19GA needle opened to sterile field. 13:02:34 Tegaderm 4 x 4 (1626W) opened to sterile field. 13:02:34 Sterile Angiographic Pack opened to sterile field. 13:02:35 Bag Decanter (2002S) opened to sterile field. 13:02:37 ACIST Manifold (43498) opened to sterile field. 13:02:37 ACIST Hand Control (95808) opened to sterile field. 13:02:39 ACIST Syringe (10095) opened to sterile field. 13:02:47 - 13:02:53 ECG and BP/O2 sat monitors applied to patient. 13:02:55 Vital chart was started 13:02:56 Baseline sample Acquired. 13:02:58 Full Disclosure recording started 13:02:59 - 13:04:02 - 13:10:14 - 13:17:50 Physician arrived 13:18:02 --------ALL STOP TIME OUT------ 13:18:03 Final Timeout: patient, procedure, and site verified with staff and physician. All members of the team are in agreement. 13:18:17 Procedure started. 13:18:22 Local anesthetic to left femerol artery with Lidocaine 1% by Yoshi Allred MD.INITIAL ACCESS ONLY 13:20:56 A [facility] Pigtail VESSEL SIZING 5Fr 65CM catheter ([id number]) was advanced over the wire and used for . 13:21:23 Versed 0.5 mg I.V. was administered by Roopa Solo RN; for sedation; 13:21:33 Fentanyl 25 mcg I.V. was administered by Roopa Solo RN; for sedation ; 13:21:54 Heparin Flush Bag (1000units/500ml NS) 3 bags added to field was administered by Yoshi Allred MD; used for procedure; 13:22:07 Lidocaine 1% 20ml vial added to field was administered by Yoshi Allred MD; used for procedure; 13:22:15 Lidocaine 1% 20ml vial added to field was administered by Yoshi Allred MD; used for procedure; 13:27:03 GLIDE WIRE ANGLE 260cm (GI8495) opened to sterile field. 13:27:21 TORQUE DEVICE PLASTIC .038 ( TD01) opened to sterile field. 13:27:31 GLIDE CATHETER 5FR ANGLED 65cm (CG507) opened to sterile field. 13:27:52 Angiography was performed. 13:35:25 AMPLATZ Short Taper 260cm wire ([id number]) opened to sterile field. 13:37:20 GLIDE CATHETER 4FR Straight 100cm (CG413) opened to sterile field. 13:39:42 Versed 0.5 mg I.V. was administered by Yoshi Allred MD; for sedation ; 13:39:48 Fentanyl 25 mcg I.V. was administered by Yoshi Allred MD; for sedation; 13:44:59 INFUSION CATHETER 50cm Dory (0264730) opened to sterile field . 13:50:25 INFUSION CATHETER 30cm Teddy-Mari (5387860) opened to sterile field . 13:50:43 SHEATH 6FR Destination (RSR01) opened to sterile field. 14:07:50 Versed 0.5 mg I.V. was administered by Yoshi Allred MD; for sedation ; 14:07:57 Fentanyl 25 mcg I.V. was administered by Yoshi Allred MD; for sedation; 14:11:31 Heparin Bolus 5000 units I.V. was administered by Roopa Solo RN; use d for procedure; 14:11:56 AMPLATZ Super stiff 260cm wire ([id number]) opened to sterile field. 14:14:37 Fentanyl 25 mcg I.V. was administered by Roopa Solo RN; for sedation ; 14:14:44 Versed 0.5 mg I.V. was administered by Roopa Solo RN; for sedation; 14:16:23 Tegaderm 6 x 8 (1628) opened to sterile field. 14:16:24 Tegaderm 6 x 8 (1628) opened to sterile field. 14:16:25 Tegaderm 6 x 8 (1628) opened to sterile field. 14:24:14 Procedure ended.(Physican Out) 14:24:33 Contrast amount:Isovue 300 65ml. 14:24:39 Fluoroscopy time 00.00 minutes. 14:24:45 Fluoroscopy dose: 327 mGy 14:24:45 Flurop Dose total: 327 14:32:04 Procedure and supply charges have been captured, reviewed, submitted an d are correct. 14:56:48 Post Procedure Pulses reassessed and unchanged 14:57:10 Report given to ICU. 15:05:14 Activase(12.5mg/250 NS) 20 ml/hr I.A. was administered by Roopa Solo RN; used for procedure; 15:07:10 Heparin Drip (77221birqp/250 D5W) 500units/hr I.A. drip was administere d by Roopa Solo RN; used for procedure; 15:07:54 Integrilin (Bolus 2mg/ml) 8 ml I.V. was administered by Roopa Solo RN; ; 15:08:27 Integrilin Drip (75mg/100ml) 6 ml/hr I.V. drip was administered by Roopa Solo RN; ; 15:08:57 Patient transfered to ICU with Bed. 15:09:19 Vital chart was stopped Device Usage Item Name Manufacture Quantity Catalog Hospital Part Current Minim al Lot# / Number Charge Number Stock Stock Serial# Code TUBING Merit 1 [id number] 163891 816302 5 Contrast Medical Injection High Pressure (NRW896V) DOC .035 wire Cook Medical 1 R44959 600837 903413 5 (U39756) SHEATH 5FR Terumo 1 OKR717 534145 349802 326453 40 Cecil (JJI775) MOLINA 260 wire [employer] 1 G72069 099368 15105 105108 5 0924870 (Q17599) PERCUTANEOUS [employer] 1 O81194 462203 719577 5 7640005 ENTRY 19GA needle Tegaderm 4 x 4 3M 1 1626W 002668 853091 314759 5 (1626W) Sterile Cardinal 1 [id number] 458771 267309 5 Angiographic Health Pack Bag Decanter Microtek 1 206411 62009 568402 5 () Medical Inc. ACIST Manifold Acist 1 46027 970243 793721 197697 5 (13138) Medical Systems Inc ACIST Hand Acist 1 97505 138828 026083 318276 5 Control Medical (13908) Systems Inc ACIST Syringe Acist 1 81224 815465 327928 353749 20 (57293) Medical Systems Inc Merit UHF Merit 1 7602-20M65 887904 578726 5 Pigtail VESSEL Medical SIZING 5Fr 65CM catheter (078499D58) GLIDE WIRE Terumo 1 OX6928 837115 870666 743049 5 ANGLE 260cm (PR4215) TORQUE DEVICE [place] 1 TD01 045783 360222 056269 5 PLASTIC .038 ( Scientific TD01) GLIDE CATHETER Terumo 1 CG507 018622 508717 5 5FR ANGLED 65cm (CG507) AMPLATZ Short [place] 1 [id number] 521046 100256 208378 5 Taper 260cm Scientific wire ([id number]) GLIDE CATHETER Terumo 1 CG413 982699 235235 5 4FR Straight 100cm (CG413) INFUSION Medtronic 1 50795-42 506828 230097 5 CATHETER 50cm Cragg-Mari (5554687) INFUSION Medtronic 1 62704-48 416249 800244 5 CATHETER 30cm Cragg-Mari (1384914) SHEATH 6FR Terumo 1 RSR01 033084 19287 541731 5 Destination (RSR01) AMPLATZ Super [place] 1 [id number] 270244 12501 949183 5 stiff 260cm Scientific wire ([id number]) Tegaderm 6 x 8 3M 3 1628 341720 402354 5 (1628) Signature Audit [place] Stage Time Signature Unsigned Intra-Procedure 07/24/2017 Emani Sadler 3:09:16 PM RT(R) Signatures Monitor : Emani Sadler RT Signature : Date : Time : [facility] [address] [address]
[2017-07-22 13:53] LABS: BASOPHILS 0.1 % (0-2); EOSINOPHILS 0.8 % (0-7); HEMATOCRIT 40.5 % (36.0-48.0); HEMOGLOBIN 13.1 g/dL (12-16); IMMATURE GRANULOCYTES 0.4 % (0-5); LYMPHOCYTES 15.7 % (15-50); MCH 28.4 pg (26.0-34.0); MCHC 32.3 g/dL (31.0-37.0); MCV 87.7 fL (80.0-100.0); MONOCYTES 15.1 % (2-11); NEUTROPHILS 67.9 % (40-80); RBC 4.62 10x6/uL (4.00-5.40); RDW 14.9 % (11.5-14.5); WBC 10.1 10x3/uL (4.8-10.8)
[2017-07-22 14:11] LABS: PLATELET COUNT 157 10x3/uL (130-400)
[2017-07-22 14:13] LABS: ANION GAP 15.8 mmol/L (8-16); BILIRUBIN - TOTAL 0.8 mg/dL (0.2-1.3); CALCIUM 9.2 mg/dL (8.5-10.1); CARBON DIOXIDE 26.9 mmol/L (21.0-32.0); CREATININE - SERUM 0.9 mg/dL (0.6-1.3); POTASSIUM - SERUM 3.7 mmol/L (3.5-5.1); PROTEIN - SERUM 7.5 g/dL (6.4-8.2)
[2017-07-22 17:52] LABS: APTT 38.8 SECONDS (22.8-39.4); INR 1.01 (0.85-1.17); PROTIME 12.9 SECONDS (11.6-15.0)
[2017-07-22 19:56] LABS: APPEARANCE CLEAR (CLEAR); BILIRUBIN NEGATIVE (NEGATIVE); COLOR YELLOW (YELLOW); GLUCOSE NEGATIVE (NEGATIVE); KETONE SMALL mg/dL (NEGATIVE); NITRITE NEGATIVE (NEGATIVE); PROTEIN NEGATIVE (NEGATIVE); UROBILINOGEN NORMAL (NORMAL)
[2017-07-23] VITALS (7 sets, daily range): BP systolic 117–154; BP diastolic 59–82; Ht 170.2 cm; Wt 91.7 kg
[2017-07-23] MEDS ORDERED: OMEPRAZOLE40 MG PO (00:26)
[2017-07-23 14:47] LABS: CHOL - HDL RATIO 4.8 ratio (2.3-4.1); LDL-HDL RATIO 3.2 ratio (1.5-3.5)
[2017-07-24] VITALS (12 sets, daily range): BP systolic 126–162; BP diastolic 75–88
[2017-07-24 16:10] LABS: BASOPHILS 0.2 % (0-2); EOSINOPHILS 0.8 % (0-7); HEMATOCRIT 38.1 % (36.0-48.0); HEMOGLOBIN 12.2 g/dL (12-16); IMMATURE GRANULOCYTES 1.4 % (0-5); LYMPHOCYTES 16.4 % (15-50); MCH 27.9 pg (26.0-34.0); MEAN PLATELET VOLUME 9.7 fL (7.4-10.4); MONOCYTES 24.8 % (2-11); NEUTROPHILS 56.4 % (40-80); PLATELET COUNT 144 10x3/uL (130-400); RBC 4.38 10x6/uL (4.00-5.40); WBC 6.4 10x3/uL (4.8-10.8)
[2017-07-24 16:19] LABS: INR 1.1 (0.85-1.17); PROTIME 13.8 SECONDS (11.6-15.0)
[2017-07-24 16:24] LABS: CALC OSMOLALITY 275 mosm/kg (275-300); CALCIUM 8.4 mg/dL (8.5-10.1); CARBON DIOXIDE 26.1 mmol/L (21.0-32.0); CHLORIDE - SERUM 101 mmol/L (98-107); CREATININE - SERUM 0.7 mg/dL (0.6-1.3); GLUCOSE 80 mg/dL (74-106); POTASSIUM - SERUM 3.7 mmol/L (3.5-5.1); SODIUM 139 mmol/L (136-145); UREA NITROGEN 10 mg/dL (7-18); eGFR NON AFRICAN AMERICAN 87 mL/min (90-120)
[2017-07-24 21:52] LABS: HEMATOCRIT 36.5 % (36.0-48.0); HEMOGLOBIN 11.8 g/dL (12-16); MCHC 32.3 g/dL (31.0-37.0); MCV 86.7 fL (80.0-100.0); MEAN PLATELET VOLUME 9.3 fL (7.4-10.4); PLATELET COUNT 135 10x3/uL (130-400); RBC 4.21 10x6/uL (4.00-5.40); RDW 15.1 % (11.5-14.5); WBC 6.6 10x3/uL (4.8-10.8)
[2017-07-24 22:02] LABS: INR 1.06 (0.85-1.17); PROTIME 13.4 SECONDS (11.6-15.0)
[2017-07-24 22:42] LABS: EOSINOPHILS 2 % (0-7); LYMPHOCYTES 37 % (15-50); MONOCYTES 6 % (2-11); NEUTROPHILS 55 % (40-80); PLATELET ESTIMATE NORMAL
[2017-07-25] VITALS (23 sets, daily range): BP systolic 124–178; BP diastolic 69–901
[2017-07-25 03:04] LABS: BASOPHILS 0.1 % (0-2); EOSINOPHILS 0.9 % (0-7); HEMATOCRIT 36.9 % (36.0-48.0); HEMOGLOBIN 11.9 g/dL (12-16); LYMPHOCYTES 12.6 % (15-50); MCH 28.1 pg (26.0-34.0); MCHC 32.2 g/dL (31.0-37.0); MCV 87.2 fL (80.0-100.0); MEAN PLATELET VOLUME 9.7 fL (7.4-10.4); MONOCYTES 27.1 % (2-11); NEUTROPHILS 58.3 % (40-80); PLATELET COUNT 136 10x3/uL (130-400); RBC 4.23 10x6/uL (4.00-5.40); RDW 15.1 % (11.5-14.5); WBC 6.8 10x3/uL (4.8-10.8)
[2017-07-25 03:07] LABS: ANION GAP 14.4 mmol/L (8-16); CARBON DIOXIDE 26.5 mmol/L (21.0-32.0); CREATININE - SERUM 0.8 mg/dL (0.6-1.3); POTASSIUM - SERUM 3.9 mmol/L (3.5-5.1)
[2017-07-25 03:09] LABS: APTT 43.3 SECONDS (22.8-39.4); INR 1.08 (0.85-1.17); PROTIME 13.6 SECONDS (11.6-15.0)
[2017-07-25 09:19] LABS: BASOPHILS 0 % (0-2); EOSINOPHILS 0.8 % (0-7); HEMATOCRIT 36.8 % (36.0-48.0); HEMOGLOBIN 11.8 g/dL (12-16); IMMATURE GRANULOCYTES 0.8 % (0-5); LYMPHOCYTES 10.9 % (15-50); MCH 27.9 pg (26.0-34.0); MCHC 32.1 g/dL (31.0-37.0); MEAN PLATELET VOLUME 9.7 fL (7.4-10.4); MONOCYTES 24.3 % (2-11); NEUTROPHILS 63.2 % (40-80); PLATELET COUNT 133 10x3/uL (130-400); RBC 4.23 10x6/uL (4.00-5.40); RDW 15.1 % (11.5-14.5); WBC 6.1 10x3/uL (4.8-10.8)
[2017-07-25 09:36] LABS: INR 1.14 (0.85-1.17); PROTIME 14.2 SECONDS (11.6-15.0)
[2017-07-25 09:37] LABS: APTT 42.4 SECONDS (22.8-39.4)
[2017-07-25 18:37] LABS: BASOPHILS 0 % (0-2); EOSINOPHILS 0.7 % (0-7); HEMATOCRIT 36.9 % (36.0-48.0); HEMOGLOBIN 11.9 g/dL (12-16); LYMPHOCYTES 20.2 % (15-50); MCHC 32.2 g/dL (31.0-37.0); MCV 86.8 fL (80.0-100.0); MEAN PLATELET VOLUME 9.4 fL (7.4-10.4); MONOCYTES 12.8 % (2-11); NEUTROPHILS 64.3 % (40-80); PLATELET COUNT 124 10x3/uL (130-400); RBC 4.25 10x6/uL (4.00-5.40); RDW 14.9 % (11.5-14.5); WBC 7.6 10x3/uL (4.8-10.8)
[2017-07-25 18:48] LABS: INR 1.25 (0.85-1.17); PROTIME 15.3 SECONDS (11.6-15.0)
[2017-07-25 18:53] LABS: APTT 74.9 SECONDS (22.8-39.4)
[2017-07-25 21:01] LABS: BASOPHILS 0.1 % (0-2); EOSINOPHILS 0.3 % (0-7); HEMATOCRIT 35.7 % (36.0-48.0); HEMOGLOBIN 11.6 g/dL (12-16); IMMATURE GRANULOCYTES 1.4 % (0-5); LYMPHOCYTES 20.4 % (15-50); MCHC 32.5 g/dL (31.0-37.0); MCV 86.2 fL (80.0-100.0); MEAN PLATELET VOLUME 9.4 fL (7.4-10.4); MONOCYTES 15.7 % (2-11); NEUTROPHILS 62.1 % (40-80); PLATELET COUNT 110 10x3/uL (130-400); RBC 4.14 10x6/uL (4.00-5.40); RDW 14.8 % (11.5-14.5); WBC 9.1 10x3/uL (4.8-10.8)
[2017-07-25 21:10] LABS: INR 1.22 (0.85-1.17)
[2017-07-25 21:13] LABS: APTT 49.7 SECONDS (22.8-39.4)
[2017-07-26] VITALS (22 sets, daily range): BP systolic 121–158; BP diastolic 75–86
[2017-07-26 02:41] LABS: BASOPHILS 0 % (0-2); EOSINOPHILS 0.5 % (0-7); HEMOGLOBIN 11.3 g/dL (12-16); IMMATURE GRANULOCYTES 1.1 % (0-5); LYMPHOCYTES 17.8 % (15-50); MCH 27.8 pg (26.0-34.0); MCHC 32.3 g/dL (31.0-37.0); MEAN PLATELET VOLUME 9.2 fL (7.4-10.4); MONOCYTES 16.8 % (2-11); NEUTROPHILS 63.8 % (40-80); RBC 4.07 10x6/uL (4.00-5.40); RDW 14.9 % (11.5-14.5); WBC 9.4 10x3/uL (4.8-10.8)
[2017-07-26 02:42] LABS: PLATELET COUNT 102 10x3/uL (130-400)
[2017-07-26 02:49] LABS: APTT 47.9 SECONDS (22.8-39.4); INR 1.18 (0.85-1.17); PROTIME 14.5 SECONDS (11.6-15.0)
[2017-07-26 02:52] LABS: ANION GAP 17.2 mmol/L (8-16); CALCIUM 7.9 mg/dL (8.5-10.1); CARBON DIOXIDE 21.7 mmol/L (21.0-32.0); CREATININE - SERUM 0.8 mg/dL (0.6-1.3); POTASSIUM - SERUM 3.9 mmol/L (3.5-5.1)
[2017-07-26 09:06] LABS: BASOPHILS 0 % (0-2); EOSINOPHILS 0.5 % (0-7); HEMATOCRIT 34.7 % (36.0-48.0); HEMOGLOBIN 11.3 g/dL (12-16); IMMATURE GRANULOCYTES 1.7 % (0-5); LYMPHOCYTES 16.6 % (15-50); MCH 27.9 pg (26.0-34.0); MCHC 32.6 g/dL (31.0-37.0); MCV 85.7 fL (80.0-100.0); MEAN PLATELET VOLUME 8.9 fL (7.4-10.4); MONOCYTES 12.3 % (2-11); NEUTROPHILS 68.9 % (40-80); PLATELET COUNT 94 10x3/uL (130-400); RBC 4.05 10x6/uL (4.00-5.40); WBC 8.3 10x3/uL (4.8-10.8)
[2017-07-26 09:15] LABS: APTT 44.5 SECONDS (22.8-39.4); INR 1.15 (0.85-1.17); PROTIME 14.3 SECONDS (11.6-15.0)
[2017-07-26 17:12] LABS: BASOPHILS 0.1 % (0-2); EOSINOPHILS 0.5 % (0-7); HEMATOCRIT 33.5 % (36.0-48.0); HEMOGLOBIN 10.7 g/dL (12-16); IMMATURE GRANULOCYTES 3.8 % (0-5); LYMPHOCYTES 14.2 % (15-50); MCH 27.5 pg (26.0-34.0); MCHC 31.9 g/dL (31.0-37.0); MCV 86.1 fL (80.0-100.0); MEAN PLATELET VOLUME 8.7 fL (7.4-10.4); MONOCYTES 13.2 % (2-11); NEUTROPHILS 68.2 % (40-80); PLATELET COUNT 85 10x3/uL (130-400); RBC 3.89 10x6/uL (4.00-5.40); RDW 15.1 % (11.5-14.5)
[2017-07-26 17:50] LABS: INR 1.21 (0.85-1.17); PROTIME 14.9 SECONDS (11.6-15.0)
[2017-07-26 17:51] LABS: APTT 64.8 SECONDS (22.8-39.4)
[2017-07-26 22:42] LABS: BASOPHILS 0 % (0-2); EOSINOPHILS 0.9 % (0-7); HEMATOCRIT 33.3 % (36.0-48.0); HEMOGLOBIN 10.8 g/dL (12-16); IMMATURE GRANULOCYTES 3.7 % (0-5); LYMPHOCYTES 8.4 % (15-50); MCH 27.7 pg (26.0-34.0); MCHC 32.4 g/dL (31.0-37.0); MCV 85.4 fL (80.0-100.0); MEAN PLATELET VOLUME 9.7 fL (7.4-10.4); MONOCYTES 22.4 % (2-11); NEUTROPHILS 64.6 % (40-80); PLATELET COUNT 89 10x3/uL (130-400)
[2017-07-26 22:56] LABS: INR 1.15 (0.85-1.17); PROTIME 14.3 SECONDS (11.6-15.0)
[2017-07-27] VITALS (16 sets, daily range): BP systolic 114–160; BP diastolic 58–104
[2017-07-27 05:46] LABS: ANION GAP 14.5 mmol/L (8-16); CALCIUM 7.9 mg/dL (8.5-10.1); CARBON DIOXIDE 23.8 mmol/L (21.0-32.0); CREATININE - SERUM 0.8 mg/dL (0.6-1.3)
[2017-07-27 05:57] LABS: POTASSIUM - SERUM 3.3 mmol/L (3.5-5.1)
[2017-07-28 04:33] VITALS: BP 124/60
[2017-07-28 06:41] LABS: CALC OSMOLALITY 270 mosm/kg (275-300); CALCIUM 7.7 mg/dL (8.5-10.1); CARBON DIOXIDE 26.1 mmol/L (21.0-32.0); CHLORIDE - SERUM 100 mmol/L (98-107); CREATININE - SERUM 0.6 mg/dL (0.6-1.3); GLUCOSE 79 mg/dL (74-106); SODIUM 137 mmol/L (136-145); UREA NITROGEN 7 mg/dL (7-18); eGFR NON AFRICAN AMERICAN > 90 mL/min (90-120)
[2017-07-28 06:44] LABS: POTASSIUM - SERUM 2.9 mmol/L (3.5-5.1)
[2017-07-28 08:42] VITALS: BP 108/53
[2017-07-28 12:45] VITALS: BP 113/50
[2017-07-28 16:35] VITALS: BP 101/50
[2017-07-28 20:00] VITALS: BP 112/61
[2017-07-29 04:00] VITALS: BP 165/57
[2017-07-29 07:30] LABS: BASOPHILS 0.2 % (0-2); EOSINOPHILS 2.3 % (0-7); HEMATOCRIT 29.8 % (36.0-48.0); HEMOGLOBIN 9.8 g/dL (12-16); IMMATURE GRANULOCYTES 5.7 % (0-5); LYMPHOCYTES 19.6 % (15-50); MCH 27.5 pg (26.0-34.0); MCHC 32.9 g/dL (31.0-37.0); MCV 83.5 fL (80.0-100.0); MEAN PLATELET VOLUME 9.5 fL (7.4-10.4); MONOCYTES 33.9 % (2-11); NEUTROPHILS 38.3 % (40-80); PLATELET COUNT 97 10x3/uL (130-400); RBC 3.57 10x6/uL (4.00-5.40); RDW 14.5 % (11.5-14.5); WBC 4.4 10x3/uL (4.8-10.8)
[2017-07-29 07:44] LABS: CALC OSMOLALITY 268 mosm/kg (275-300); CALCIUM 7.8 mg/dL (8.5-10.1); CARBON DIOXIDE 27.3 mmol/L (21.0-32.0); CHLORIDE - SERUM 97 mmol/L (98-107); CREATININE - SERUM 0.6 mg/dL (0.6-1.3); GLUCOSE 79 mg/dL (74-106); MAGNESIUM - SERUM 1.1 mg/dL (1.8-2.4); POTASSIUM - SERUM 3.2 mmol/L (3.5-5.1); SODIUM 136 mmol/L (136-145); UREA NITROGEN 6 mg/dL (7-18); eGFR NON AFRICAN AMERICAN > 90 mL/min (90-120)
[2017-07-29 08:00] VITALS: BP 113/57
[2017-07-29 13:14] LABS: MAGNESIUM - SERUM 1.2 mg/dL (1.8-2.4); POTASSIUM - SERUM 4.2 mmol/L (3.5-5.1)
[2017-07-29 17:05] VITALS: BP 118/62
[2017-07-29 22:58] VITALS: BP 112/64
[2017-07-30 05:12] LABS: BASOPHILS 0.2 % (0-2); EOSINOPHILS 2.1 % (0-7); HEMATOCRIT 32.1 % (36.0-48.0); HEMOGLOBIN 10.4 g/dL (12-16); IMMATURE GRANULOCYTES 5.3 % (0-5); LYMPHOCYTES 20.5 % (15-50); MCH 27.3 pg (26.0-34.0); MCHC 32.4 g/dL (31.0-37.0); MCV 84.3 fL (80.0-100.0); MEAN PLATELET VOLUME 9.6 fL (7.4-10.4); MONOCYTES 38.6 % (2-11); NEUTROPHILS 33.3 % (40-80); RBC 3.81 10x6/uL (4.00-5.40); RDW 14.6 % (11.5-14.5); WBC 4.4 10x3/uL (4.8-10.8)
[2017-07-30 05:19] LABS: PLATELET COUNT 134 10x3/uL (130-400)
[2017-07-30 05:40] VITALS: BP 134/74
[2017-07-30 05:40] LABS: ALBUMIN 2.3 g/dL (3.4-5.0); ALKALINE PHOSPHATASE 67 U/L (46-116); ALT (SGPT) 20 U/L (10-68); CALC OSMOLALITY 271 mosm/kg (275-300); CALCIUM 7.8 mg/dL (8.5-10.1); CHLORIDE - SERUM 98 mmol/L (98-107); CREATININE - SERUM 0.6 mg/dL (0.6-1.3); GLUCOSE 80 mg/dL (74-106); POTASSIUM - SERUM 3.2 mmol/L (3.5-5.1); PROTEIN - SERUM 6.2 g/dL (6.4-8.2); SODIUM 138 mmol/L (136-145); UREA NITROGEN 5 mg/dL (7-18); eGFR NON AFRICAN AMERICAN > 90 mL/min (90-120)
[2017-07-30 09:20] VITALS: BP 117/72
[2017-07-30 13:26] VITALS: BP 87/49
[2017-07-30] MEDS ORDERED: ONDANSETRON4 MG/2 M3 IV (13:53)
[2017-07-30] MEDS ORDERED: NORVASC5 MG PO (13:53)
[2017-07-30] MEDS ORDERED: CARDIZEM30 MG PO (13:53)
[2017-07-30] MEDS ORDERED: COLCRYS0.6 MG PO (13:53)
[2017-07-30] MEDS ORDERED: CYMBALTA30 MG PO (13:53)
[2017-07-30] MEDS ORDERED: ELIQUIS5 MG PO (13:53)
[2017-07-30] MEDS ORDERED: ATIVAN2 MG/ML IV (13:53)
[2017-07-30 18:26] VITALS: BP 113/61
== END 2017-07-30 18:47 | DRG 271 ==
LOC: D.ER 13:00 → D.MS 23:12 → D.EDHOLD 23:12 → OBSVTIME 23:12 → D.MS 07-23 00:04 → D.ICU 07-23 14:53 → D.MS 07-27 13:37
PROVIDERS: Family Medicine; Internal Medicine Nephrology; Physician Assistant; Specialist
PROC: B41D1ZZ Fluoroscopy of Aorta and Bilateral Lower Extremity Arteries using Low Osmolar Contrast (ICD-10-PCS; 2017-07-22)
PROC: B41F1ZZ Fluoroscopy of Right Lower Extremity Arteries using Low Osmolar Contrast (ICD-10-PCS; 2017-07-24)
PROC: B41C1ZZ Fluoroscopy of Pelvic Arteries using Low Osmolar Contrast (ICD-10-PCS; 2017-07-24)
PROC: 3E05317 Introduction of Other Thrombolytic into Peripheral Artery, Percutaneous Approach (ICD-10-PCS; principal; 2017-07-24 13:00)
PROC: 04CK3ZZ Extirpation of Matter from Right Femoral Artery, Percutaneous Approach (ICD-10-PCS; 2017-07-25)
PROC: 04CM3ZZ Extirpation of Matter from Right Popliteal Artery, Percutaneous Approach (ICD-10-PCS; 2017-07-25)
PROC: 047M3ZZ Dilation of Right Popliteal Artery, Percutaneous Approach (ICD-10-PCS; 2017-07-25)
DX: I70.293 Other atherosclerosis of native arteries of extremities, bilateral legs (principal); I70.92 Chronic total occlusion of artery of the extremities; I10 Essential (primary) hypertension; G62.9 Polyneuropathy, unspecified; I70.1 Atherosclerosis of renal artery; K21.9 Gastro-esophageal reflux disease without esophagitis; M72.2 Plantar fascial fibromatosis; M10.9 Gout, unspecified

== ENCOUNTER 2017-07-30 18:47 | Inpatient (IN) | payer MEDICARE, OTHER ==
[~2017-07-30] VITALS: Ht 170.2 cm; Wt 90.3 kg
--- NOTE | ~2017-07-30 | RHP ---
PATIENT: JORGE LINTON MEDICAL RECORD: [id number] ACCOUNT: [id number] [facility]ATION[facility] : 42 ADMISSION DATE: 07/30/17 REHABILITATION HISTORY AND PHYSICAL EXAMINATION POST ADMISSION PHYSICIAN EXAMINATION DATE OF ADMISSION: 07/30/2017 ADMITTING DIAGNOSES: Disuse myopathy. 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 On 05/16/2017, she had a right SI joint injection. Several days later, she had reported worsening left extremity pain and weakness. She went to the ED where a CTA with runoff demonstrates severe peripheral arterial disease. There was concern for critical limb ischemia and she was admitted ortho and cardiovascular were consulted. CT of the abdomen showed complete occlusion of the right superficial femoral artery and right popliteal artery with low density and limiting degrees within the superficial femoral artery. She had reconstitution of the arterial flow in the right lower extremity at the level of the tibioperoneal trunk, complete occlusion of left superficial femoral and popliteal arteries are seen with reconstitution of the tibioperoneal trunk and 60% to 70% stenosis of left main renal artery. On 07/24/2017, she had arteriogram and thrombolytic therapy. On 07/25/2017, she had angioplasty with mechanical thrombectomy showing significant progress has been made on extensive clot from the right superficial femoral artery origin through the tibial artery origins on 07/26/2017. She had lysis and followup with the right superficial femoral artery and pop mechanical thrombectomy and pop CORPORATE TRAINER showed a resolved for the most part with mechanical thrombectomy with a tiny volume of residual clot in the tibial origins. A #3 German 10 cm infusion catheter was placed below the pop into the CORPORATE TRAINER origin. Currently, she is weak, fatigued, has numbness in her right foot, making it difficult to advance with PT. She has proximal muscle weakness and right foot pain with redness when standing. Previously she was independent with ADLs and mobility without assistance device. She hopes her strength to return back to her prior level of functioning if possible. Definitely need inpatient rehabilitation to do this. COMORBIDITIES: Include hypertension, right lower extremity ischemia, right femoral artery occlusion, left femoral artery occlusion, right popliteal artery occlusion, left popliteal artery occlusion, stenosis of left main renal artery, atherosclerosis of right lower extremity, neuropathy, acute ankle disorder, anemia, hypokalemia, low platelet count and generalized weakness and numbness. She is status post right arteriogram with thrombolytic therapy. She is status post angioplasty with acute mechanical thrombectomy. She is status post lysis and followup with moderate sedation on 07/26/2017, arthritis, and gastroesophageal reflux disease. PAST MEDICAL HISTORY: Significant for basal cell skin cancer, acid reflux. She got a history of peripheral arterial disease. PAST SURGICAL HISTORY: Includes knee surgery, hernia surgery. She has had screws placed in her ankle. She has had a plate and also screws placed bilaterally in her ankles. HISTORY AND PHYSICAL [id number] JORGE LINTNO ALLERGIES: SULFA. CURRENT MEDICATIONS: Include Protonix 40 mg daily, Cymbalta 30 mg daily, Zofran 4 mg daily, lorazepam 0.5 mg every 4 hours p.r.n., Cardizem 30 mg q.i.d., colchicine 0.6 mg t.i.d., Eliquis 5 mg b.i.d., amlodipine 5 mg b.i.d., and polyethylene glycol 17 grams in 8 ounces of water daily. HABITS: No current alcohol or tobacco use. FAMILY HISTORY: Noncontributory. SOCIAL HISTORY: The patient hopes to return back home and get back to her prior level of functioning. REVIEW OF SYSTEMS: GENERAL: Does complain of weakness and fatigue. HEENT: Denies cold, cough, or congestion. CARDIOVASCULAR: Denies chest pain. PHYSICAL EXAMINATION: VITAL SIGNS: Stable, afebrile. GENERAL: An obese female, in no distress. HEENT: Normocephalic and atraumatic. Mucosa moist. NECK: Supple. No lymphadenopathy. LUNGS: Clear at this time. HEART: Regular rate and rhythm. ABDOMEN: Benign. EXTREMITIES: Consistent with peripheral arterial disease with noted venous changes and also arterial changes with discoloration and elongated capillary fill times. NEUROLOGIC: She does have noted neuropathy. LABORATORY DATA: White count is 4.6, H&H of 10.3 and 31.4 and platelet count is noted to be 181. Her sodium is 139, potassium 3.5, BUN and creatinine of 6 and 0.6 and blood sugar is noted to be 87. ASSESSMENT: This is a 76-year-old female patient admitted to rehab with a working diagnosis of disuse myopathy. The patient has a potential to make improvement. We instituted the following multidisciplinary therapies include but not limited to physical, occupational, respiratory, speech, nutritional services, prosthetics, and orthotics. Given her complex medical condition and risk for more complications, rehabilitation services cannot be provided at a low level of care such as skilled nurse facility. PLAN: 1. Admit to [facility] for inpatient therapy to include the following disciplines: A. Physical therapy to improve gait, all transfer skills and bed mobility to a modified independent level. B. Occupational therapy to improve activities of daily living to a modified independent level. C. Case management to assist with discharge planning and placement options. D. Nutrition to assist with nutritional needs. HISTORY AND PHYSICAL [id number] JORGE LINTON. Rehabilitation nursing to assist in monitoring the patient's underlying medical conditions and to assist with any type of bowel or bladder management. 2. The patient's current medication and medical care will be continued. 3. The patient will be placed on standard fall precautions. 4. The patient's estimated length of stay is approximately 7-10 days. 5. Discuss this patient during care team staff meeting this week. TRANSINT:[id number] Voice Confirmation ID: [id number] DOCUMENT ID: [id number] DENTON notes whether there has been none or any medical/functional change since admission: - No change since preadmission screen. DENTON attests patient continues to be appropriate for IRF: - Continues to be appropriate. ALLYN BEDOLLA MD at 1405 CC: [id number] DICTATION DATE: 07/31/17 0833 MID LEVEL DEVELOPER: 07/31/17 1030 ADM IN [facility] [address] [place] [address]
[2017-07-30 20:29] VITALS: BP 121/56; BMI 31.2
[2017-07-31 07:38] VITALS: BP 122/62
[2017-07-31 08:03] LABS: CALC OSMOLALITY 274 mosm/kg (275-300); CALCIUM 7.9 mg/dL (8.5-10.1); CARBON DIOXIDE 27.5 mmol/L (21.0-32.0); CHLORIDE - SERUM 97 mmol/L (98-107); CREATININE - SERUM 0.6 mg/dL (0.6-1.3); GLUCOSE 87 mg/dL (74-106); POTASSIUM - SERUM 3.5 mmol/L (3.5-5.1); SODIUM 139 mmol/L (136-145); UREA NITROGEN 6 mg/dL (7-18); eGFR NON AFRICAN AMERICAN > 90 mL/min (90-120)
[2017-07-31 08:07] LABS: BASOPHILS 0.2 % (0-2); EOSINOPHILS 2.6 % (0-7); HEMATOCRIT 31.4 % (36.0-48.0); HEMOGLOBIN 10.3 g/dL (12-16); IMMATURE GRANULOCYTES 4.1 % (0-5); LYMPHOCYTES 26.4 % (15-50); MCH 27.8 pg (26.0-34.0); MCHC 32.8 g/dL (31.0-37.0); MCV 84.6 fL (80.0-100.0); MEAN PLATELET VOLUME 9.7 fL (7.4-10.4); MONOCYTES 35.1 % (2-11); NEUTROPHILS 31.6 % (40-80); RBC 3.71 10x6/uL (4.00-5.40); RDW 14.8 % (11.5-14.5); WBC 4.6 10x3/uL (4.8-10.8)
[2017-07-31 08:10] LABS: PLATELET COUNT 181 10x3/uL (130-400)
[2017-07-31 15:19] VITALS: Ht 170.2 cm; Wt 90.3 kg
[2017-07-31 19:00] VITALS: BP 103/65
[2017-08-01 07:52] VITALS: BP 112/61
[2017-08-01 19:00] VITALS: BP 151/71
[2017-08-02 05:46] LABS: BASOPHILS 0.2 % (0-2); EOSINOPHILS 3.4 % (0-7); HEMATOCRIT 32.9 % (36.0-48.0); HEMOGLOBIN 10.7 g/dL (12-16); IMMATURE GRANULOCYTES 1.7 % (0-5); LYMPHOCYTES 36.2 % (15-50); MCH 27.5 pg (26.0-34.0); MCHC 32.5 g/dL (31.0-37.0); MCV 84.6 fL (80.0-100.0); MEAN PLATELET VOLUME 9.7 fL (7.4-10.4); MONOCYTES 32.3 % (2-11); NEUTROPHILS 26.2 % (40-80); PLATELET COUNT 316 10x3/uL (130-400); RBC 3.89 10x6/uL (4.00-5.40); RDW 15.4 % (11.5-14.5); WBC 5.4 10x3/uL (4.8-10.8)
[2017-08-02 06:22] LABS: CALCIUM 7.6 mg/dL (8.5-10.1); CARBON DIOXIDE 29.7 mmol/L (21.0-32.0)
[2017-08-02 06:26] LABS: ANION GAP 13.3 mmol/L (8-16)
[2017-08-02 08:19] VITALS: BP 126/58
[2017-08-02 19:00] VITALS: BP 102/62
[2017-08-03 08:10] VITALS: BP 104/67
[2017-08-03 20:49] VITALS: BP 97/63
[2017-08-04 08:29] VITALS: BP 116/66
[2017-08-04 09:44] VITALS: BP 118/97
[2017-08-05 00:18] VITALS: BP 113/61
[2017-08-05 06:33] LABS: BASOPHILS 0.2 % (0-2); EOSINOPHILS 3.2 % (0-7); HEMATOCRIT 33.1 % (36.0-48.0); HEMOGLOBIN 10.4 g/dL (12-16); IMMATURE GRANULOCYTES 0.8 % (0-5); LYMPHOCYTES 23.7 % (15-50); MCH 27.3 pg (26.0-34.0); MCHC 31.4 g/dL (31.0-37.0); MCV 86.9 fL (80.0-100.0); MEAN PLATELET VOLUME 9.6 fL (7.4-10.4); MONOCYTES 46.1 % (2-11); PLATELET COUNT 379 10x3/uL (130-400); RBC 3.81 10x6/uL (4.00-5.40); RDW 16.2 % (11.5-14.5); WBC 5.3 10x3/uL (4.8-10.8)
[2017-08-05 06:57] LABS: ANION GAP 12.2 mmol/L (8-16); CALCIUM 7.7 mg/dL (8.5-10.1); CARBON DIOXIDE 32.2 mmol/L (21.0-32.0); CREATININE - SERUM 1.1 mg/dL (0.6-1.3); POTASSIUM - SERUM 3.4 mmol/L (3.5-5.1)
[2017-08-05 08:00] VITALS: BP 109/68
[2017-08-05 19:00] VITALS: BP 100/63
[2017-08-06 06:41] LABS: ANION GAP 11.7 mmol/L (8-16); CALCIUM 7.4 mg/dL (8.5-10.1); CARBON DIOXIDE 30.9 mmol/L (21.0-32.0); CREATININE - SERUM 1.2 mg/dL (0.6-1.3); POTASSIUM - SERUM 3.6 mmol/L (3.5-5.1)
[2017-08-06 08:33] VITALS: BP 103/52
[2017-08-06 19:00] VITALS: BP 100/54
[2017-08-07 07:37] VITALS: BP 96/55
[2017-08-07 18:00] VITALS: BP 103/58
[2017-08-08 08:00] VITALS: BP 101/65
[2017-08-08 13:39] VITALS: BP 84/62
[2017-08-08 18:00] VITALS: BP 98/59
[2017-08-08 19:09] VITALS: BP 98/59
[2017-08-09 08:48] VITALS: BP 104/67
[2017-08-09 19:00] VITALS: BP 109/71
[2017-08-10 08:19] VITALS: BP 106/68
[2017-08-10 20:32] VITALS: BP 107/60
[2017-08-11 20:20] VITALS: BP 92/54
[2017-08-12 05:43] LABS: BASOPHILS 0.2 % (0-2); EOSINOPHILS 2.1 % (0-7); HEMATOCRIT 31.4 % (36.0-48.0); HEMOGLOBIN 9.9 g/dL (12-16); IMMATURE GRANULOCYTES 1.5 % (0-5); LYMPHOCYTES 42.6 % (15-50); MCH 27.6 pg (26.0-34.0); MCHC 31.5 g/dL (31.0-37.0); MCV 87.5 fL (80.0-100.0); MONOCYTES 31.3 % (2-11); NEUTROPHILS 22.3 % (40-80); RBC 3.59 10x6/uL (4.00-5.40); RDW 16.4 % (11.5-14.5); WBC 4.8 10x3/uL (4.8-10.8)
[2017-08-12 05:54] LABS: PLATELET COUNT 290 10x3/uL (130-400)
[2017-08-12 05:56] LABS: ANION GAP 14.8 mmol/L (8-16); CALCIUM 7.2 mg/dL (8.5-10.1); CARBON DIOXIDE 27.3 mmol/L (21.0-32.0); CREATININE - SERUM 1.1 mg/dL (0.6-1.3); POTASSIUM - SERUM 4.1 mmol/L (3.5-5.1)
[2017-08-12] MEDS ORDERED: LYRICA75 MG PO (08:27)
[2017-08-12] MEDS ORDERED: ATIVAN0.5 MG PO (08:27)
[2017-08-12 08:34] VITALS: BP 102/65
[2017-08-12 19:00] VITALS: BP 100/53
[2017-08-13 08:00] VITALS: BP 124/74
[2017-08-13 08:42] VITALS: BP 112/58
[2017-08-13] MEDS ORDERED: CARDIZEM30 MG PO (10:55)
[2017-08-13] MEDS ORDERED: NORVASC5 MG PO (10:56)
[2017-08-13] MEDS ORDERED: COLCRYS0.6 MG PO (11:22)
== END 2017-08-13 12:30 | disposition home health service (06) | DRG 93 ==
LOC: D.REHAB 18:47
PROVIDERS: Emergency Medicine; Family Medicine
DX: G72.89 Other specified myopathies (principal); I10 Essential (primary) hypertension; I99.8 Other disorder of circulatory system; I77.1 Stricture of artery; G62.9 Polyneuropathy, unspecified; I70.1 Atherosclerosis of renal artery; I70.201 Unspecified atherosclerosis of native arteries of extremities, right leg; D64.9 Anemia, unspecified; E87.6 Hypokalemia; R53.1 Weakness; R20.0 Anesthesia of skin; K21.9 Gastro-esophageal reflux disease without esophagitis

== ENCOUNTER → 2017-11-15 13:58 | Outpatient (CLI) | payer MEDICARE, OTHER ==
[2017-07-31 15:19] VITALS: BMI 31.1
[~2017-11-15 13:58] MED LIST changes: +ATIVAN0.5 MG PO; +LYRICA75 MG PO
== END | disposition home or self-care (01) ==
LOC: D.CT 13:58
DX: I73.9 Peripheral vascular disease, unspecified (principal); I70.90 Unspecified atherosclerosis

== ENCOUNTER 2017-11-27 05:44 | Outpatient (CLI) | payer MEDICARE, OTHER ==
[~2017-11-27] VITALS: Ht 170.2 cm; Wt 93.2 kg
--- NOTE | ~2017-11-27 | HEMODYNAMI ---
PATIENT:JORGE LINTON MEDICAL RECORD: [id number] : 44 LOCATION:[facility] ADMISSION DATE: 11/27/17 Generatedon:11/27/201711:15 Patient name: JORGE LINTON Patient #: [id number] SSN: : Date of study: 11/27/2017 Page: Of Hemodynamic Procedure Report Patient Data Patient Demographics Procedure consent was obtained First Name: JORGE Gender: Female Last Name: : 1940 [facility] Initial: CY Age: 77 year(s) Patient #: [id number] Race: Unknown Additional ID: [id number] Contact details [address]: [address] [place] [address] [place]: [place] City: [place] Zip code: [address] Past Medical History Allergies Allergen Reaction Date Comments Reported Sulfa drugs 07/24/2017 Sulfa drugs 07/25/2017 Sulfa drugs 07/26/2017 Sulfa drugs 11/27/2017 Admission Admission Data Admission Date: 11/27/2017 Admission Time: 5:44 Procedure Procedure Types Cath Procedure Peripheral Cath Diagnostic Procedure Abd/Extremity Extremities Left Lower Ext Arterio Procedure Description Procedure Date Procedure Date: 11/27/2017 Procedure Start Time: 8:40 Procedure Staff Name Function Brian Evangelista MD Performing Physician Elroy Evans RT Monitor Roopa Solo RN Nurse Connie Gómez Scrub Noemi Ceballos RN Nurse Procedure Data Cath Procedure Fluoroscopy Diagnostic fluoroscopy Total fluoroscopy Time: time: 29.2 min 29.2 min Diagnostic fluoroscopy Total fluoroscopy dose: 466 dose: 466 mGy mGy Contrast Material Contrast Material Type Amount (ml) Isovue 300 125 Entry Location Entry Primary Successful Side Size Upsize 1 Upsize Entry Closure Massey ccessful Closure Location (Fr) (Fr) 2 (Fr) Remarks Device Remarks Femoral Right 5 Fr 6 Fr Mynx artery Mid-Length Front End Developer Javascript Html Css 6Fr/7Fr Diagnostic catheters Device Type Used For End Catheter Placement DIAGNOSTIC IMT 5Fr Catheter ([id number]) Procedure Medications Medication Administration Route Dosage Oxygen etCO2 Nasal cannula 4 l/min Heparin Flush Bag added to field 3 (1000units/500ml NS) Lidocaine 1% added to field 20 Fentanyl I.V. 50 mcg Versed I.V. 2 mg Heparin Bolus I.V. 5000 units Fentanyl I.V. 50 mcg Versed I.V. 1 mg Heparin Bolus I.V. 2000 units Nitroglycerin IC/IA I.A. 300 mcg Versed I.V. 1 mg Nitroglycerin IC/IA I.A. 300 mcg Fentanyl I.V. 50 mcg Heparin Bolus I.V. 2000 units Fentanyl I.V. 50 mcg Versed I.V. 1 mg Versed I.V. 1 mg Hemodynamics Rest Heart Rate: 77 (bpm) Snapshots Pre Cath Intra NCS Post Cath Vital Signs Time Heart Resp SPO2 etCO2 NIBP (mmHg) Rhythm Pain Status Sedation Rate (ipm) (%) (mmHg) Level (bpm) 8:26:43 77 15 99 17.3 Measuring NSR 0 (11) , No 10(A) pain 8:27:17 74 13 99 18.8 144/91(125) NSR 0 (11) , No 10(A) pain 8:31:31 69 19 97 24 146/82(123) NSR 0 (11) , No 10(A) pain 8:35:45 72 16 96 20.3 147/86(120) NSR 0 (11) , No 10(A) pain 8:39:59 83 21 92 17.3 146/86(129) NSR 0 (11) , No 9(A) pain 8:44:13 69 12 91 9.7 139/79(108) NSR 0 (11) , No 8(A) pain 8:48:25 70 89 12.7 124/79(97) NSR 0 (11) , No 8(A) pain 8:52:35 70 10 92 30.1 117/72(87) NSR 0 (11) , No 8(A) pain 8:56:43 68 11 92 33.1 119/69(105) NSR 0 (11) , No 8(A) pain 9:00:51 70 15 90 13.5 123/75(108) NSR 0 (11) , No 8(A) pain 9:04:59 66 14 90 14.3 126/74(106) NSR 0 (11) , No 8(A) pain 9:09:09 66 16 89 10.5 127/70(95) NSR 0 (11) , No 8(A) pain 9:13:20 59 12 93 31.6 128/72(91) SB 0 (11) , No 8(A) pain 9:17:30 64 15 93 31.6 131/77(99) NSR 0 (11) , No 8(A) pain 9:21:44 64 13 92 35.3 130/71(96) NSR 0 (11) , No 8(A) pain 9:25:54 65 14 91 22.5 139/80(105) NSR 0 (11) , No 8(A) pain 9:30:08 65 13 91 11.2 125/73(112) NSR 0 (11) , No 8(A) pain 9:34:18 62 15 92 10.5 123/73(95) NSR 0 (11) , No 8(A) pain 9:38:30 58 11 92 38.3 122/66(86) SB 0 (11) , No 8(A) pain 9:42:40 65 13 91 9.7 112/72(93) NSR 0 (11) , No 8(A) pain 9:46:46 62 13 93 24 123/66(76) NSR 0 (11) , No 8(A) pain 9:50:58 63 13 97 36.1 112/64(82) NSR 0 (11) , No 8(A) pain 9:55:01 71 13 96 21 111/73(92) NSR 0 (11) , No 8(A) pain 9:59:05 71 14 96 27.1 117/74(88) NSR 0 (11) , No 8(A) pain 10:03:11 76 15 95 0 110/77(93) NSR 0 (11) , No 8(A) pain 10:07:14 83 16 91 0 107/77(89) NSR 0 (11) , No 8(A) pain 10:11:16 74 12 95 9 118/75(102) NSR 0 (11) , No 8(A) pain 10:15:22 72 14 98 10.5 130/77(117) NSR 0 (11) , No 8(A) pain 10:19:34 65 9 97 32.4 125/75(95) NSR 0 (11) , No 8(A) pain 10:23:46 63 12 94 10.5 127/68(99) NSR 0 (11) , No 8(A) pain 10:27:58 68 14 93 28.6 120/72(86) NSR 2 (11) , 8(A) Uncomfortable 10:32:04 66 12 95 26.3 139/77(112) NSR 0 (11) , No 8(A) pain 10:36:16 83 12 90 0 114/75(93) NSR 0 (11) , No 8(A) pain 10:40:21 75 10 93 0 111/74(89) NSR 0 (11) , No 8(A) pain 10:44:27 73 12 92 0 116/67(96) NSR 0 (11) , No 8(A) pain 10:48:35 71 12 92 0 107/71(86) NSR 0 (11) , No 8(A) pain 10:52:39 68 12 92 8.2 102/71(94) NSR 0 (11) , No 8(A) pain 10:56:38 72 11 91 12.8 114/77(95) NSR 0 (11) , No 8(A) pain 11:00:44 63 12 92 10.5 129/74(94) NSR 0 (11) , No 8(A) pain 11:04:54 72 16 92 33.9 126/81(96) NSR 0 (11) , No 8(A) pain 11:09:00 67 10 94 39.9 131/85(121) NSR 0 (11) , No 8(A) pain 11:13:10 33.1 141/79(110) NSR 0 (11) , No 8(A) pain Medications Time Medication Route Dose Verified Delivered Reason Notes Effec tiveness by by 8:38:34 Oxygen etCO2 4 Brian Franklin Per Nasal l/min Tonja Ceballos RN protocol cannula 8:38:51 Heparin Flush added 3 Brian Torres Per Bag to BAGS Tonja Evangelista protocol (1000units/500ml field MD COHEN NS) 8:39:04 Lidocaine 1% added 20ml Brain Torres Per to vial Tonja Evangelista protocol field MD COHEN 8:42:49 Fentanyl I.V. 50 Brian Roseine for Mostl y [facility] Tonja Ceballos RN sedation sleeping @ 8:51:29 8:43:27 Versed I.V. 2 mg Brian Roseine for Mostl y Tonja Ceballos RN sedation sleeping @ 8:51:32 8:51:11 Heparin Bolus I.V. 5000 Brian Franklin Per units Tonja Ceballos RN protocol 9:24:36 Fentanyl I.V. 50 Brian Roseine for Mostl y [facility] Tonja Ceballos RN sedation sleeping @ 9:30:25 9:27:23 Versed I.V. 1 mg Brian Roseine for Mostl y Tonja Ceballos RN sedation sleeping @ 9:30:28 9:39:53 Heparin Bolus I.V. 2000 Brian Franklin Per units Tonja Ceballos RN protocol 9:47:41 Nitroglycerin I.A. 300 Brian Torres Per IC/IA [facility] Tonja Evangelista protocol MD COHEN 9:58:21 Versed I.V. 1 mg Brian Franklin for Mostl y Tonja Ceballos RN sedation sleeping @ 10:03:50 10:06:09 Nitroglycerin I.A. 300 Brian Torres Per IC/IA [facility] Tonja Evangelista protocol MD COHEN 10:16:38 Fentanyl I.V. 50 Brian Franklin for Mostl y [facility] Tonja Ceballos RN sedation sleeping @ 10:21:30 10:23:14 Heparin Bolus I.V. 2000 Brian Franklin Per units Tonja Ceballos RN protocol 10:29:48 Fentanyl I.V. 50 Brian Roseine for Dozin g [facility] Tonja Ceballos RN sedation intermittently MD @ 10:32:10 10:30:52 Versed I.V. 1 mg Brian Roseine for Dozin g Tonja Ceballos RN sedation intermittently MD @ 10:32:15 10:32:24 Versed I.V. 1 mg Brian Roseine for Mostl y Tonja Ceballos RN sedation sleeping @ 10:35:16 Procedure Log Time Note 8:14:32 Elroy Evans RT (R) (CV) sent for patient. Start room use. 8:14:39 Time tracking: Regular hours (M-F 7:00 - 5:00) 8:14:44 Plan of Care:Hemodynamics will remain stable., Cardiac rhythm will remain stable., Comfort level will be maintained., Respiratory function will remain adequate., Patient/ family verbilizes understanding of procedure., Procedure tolerated without complication., Recovers from procedure without complications.. 8:14:48 Use device set IR Diagnostic 8:14:50 ACIST Syringe (70926) opened to sterile field. 8:14:50 ACIST Hand Control (87196) opened to sterile field. 8:14:50 ACIST Manifold (56065) opened to sterile field. 8:14:50 Bag Decanter (2002S) opened to sterile field. 8:14:51 Sterile Angiographic Pack opened to sterile field. 8:14:51 Tegaderm 4 x 4 (1626W) opened to sterile field. 8:15:01 Patient received from Outpatients to IR Alert and oriented. Tansferred to table in Supine position. 8:15:02 Correct patient and procedure confirmed by team. 8:15:06 Signed procedure consent form obtained from patient. 8:15:07 ECG and BP/O2 sat monitors applied to patient. 8:15:09 Full Disclosure recording started 8:15:12 - 8:15:18 H&P Date Dictated: 11/27/2017 H&P Addendum completed by physician on day of procedure. (MUST COMPLETE FOR ALL OUTPATIENTS). 8:15:18 Pre-procedure instructions explained to patient. 8:15:19 Pre-op teaching completed and patient verbalized understanding. 8:15:20 Family in waiting room. 8:15:23 Patient NPO since Midnight. 8:15:37 Patient allergic to Sulfa drugs 8:15:41 Is the patient allergic to Iodine/contrast media? No. 8:15:43 Is patient on blood thinner?No 8:15:44 Patient diabetic? No. 8:15:45 - 8:15:46 ----Pre-sedation anethsthesia assessment.---- 8:15:49 Previous problem with sedation/anesthesia? No ? 8:15:50 Snore? Yes 8:15:52 Sleep apnea? No 8:15:53 Deviated septum? No 8:15:55 Opens mouth fully? Yes 8:15:57 Sticks out tongue? Yes 8:15:59 Airway obstruction? No ? 8:16:01 Dentures? No ? 8:24:52 Vital chart was started 8:25:11 Baseline sample Acquired. 8:25:14 Baseline sample Acquired. 8:38:34 Oxygen 4 l/min etCO2 Nasal cannula was administered by Noemi Ceballos RN; Per protocol; 8:38:51 Heparin Flush Bag (1000units/500ml NS) 3 BAGS added to field was administered by Brian Evangelista MD; Per protocol; 8:39:04 Lidocaine 1% 20ml vial added to field was administered by Brian soares MD; Per protocol; 8:39:08 Pre procedure: right dorsailis pedis pulse Doppler 8:39:11 Pre procedure: left dorsailis pedis pulse Doppler 8:39:15 Pre procedure: right posterior tibial pulse Doppler 8:39:19 Pre procedure: left posterior tibial pulse Doppler 8:39:42 Patient pain scale 0/10 NO PAIN. 8:39:48 IV patent on arrival in left forearm with 0.9% NaCl at [facility]. 8:39:54 Right groin area was prepped with chlora-prep and draped in sterile fashion 8:39:56 Alarms reviewed by R. N. 8:39:57 Sharps counted by scrub and verified by R.N. 8:40:00 Physician arrived 8:40:01 --------ALL STOP TIME OUT------ 8:40:01 Final Timeout: patient, procedure, and site verified with staff and physician. All members of the team are in agreement. 8:40:04 Right groin site verified by team. 8:40:08 Sedation plan: IV Moderate Sedation Medication:Versed, Fentanyl 8:40:14 Procedure started. 8:40:18 Local anesthetic to right femoral artery with Lidocaine 1% by Brian Evangelista MD.INITIAL ACCESS ONLY 8:40:29 Micropuncture VSI 4FR kit opened to sterile field. 8:40:30 SHEATH 5FR Lissie (OBC140) opened to sterile field. 8:40:30 BENTSON 145cm wire (S87220) opened to sterile field. 8:40:31 TUBING Contrast Injection High Pressure (VDK388M) opened to sterile field. 8:40:31 MOLINA 260 wire (O97129) opened to sterile field. 8:40:31 SHEATH 6FR Destination (RSR01) opened to sterile field. 8:40:35 A DIAGNOSTIC IMT 5Fr Catheter ([id number]) was advanced over the wire an d used for . 8:40:45 A 5 Fr sheath was inserted into the Right Femoral artery 8:42:49 Fentanyl 50 mcg I.V. was administered by Noemi Ceballos RN; for sedation; 8:43:27 Versed 2 mg I.V. was administered by Noemi Ceballos RN; for sedation; 8:45:45 CHOICE PT Extra Support J 300cm guide wire ([id number]) opened to steril e field. 8:49:58 Sheath upsized to a 6 Fr Mid-Length. 8:51:11 Heparin Bolus 5000 units I.V. was administered by Noemi Ceballos RN; Per protocol; 8:51:29 Effectiveness of Fentanyl delivered @ 8:42:49 is: Mostly sleeping 8:51:32 Effectiveness of Versed delivered @ 8:43:27 is: Mostly sleeping 8:51:50 GLIDE WIRE MERIT Angled 260cm ([id number]) opened to sterile field. 8:51:50 CXI SUPPORT .035 135 CM STR catheter (W00252) opened to sterile field. 8:53:02 ROADRUNNER .035 260 glide wire (E82465) opened to sterile field. 9:10:11 Enteer Re-entry cath 3.75 opened to sterile field. 9:10:23 Enteer Re-entry cath 3.75 opened to sterile field. 9:14:59 ST[address] 3-Way Large Bore (G60140) opened to sterile field. 9:19:11 CXI SUPPORT .018 150CM STR catheter (B95237) opened to sterile field. 9:24:36 Fentanyl 50 mcg I.V. was administered by Noemi Ceballos RN; for sedation; 9:27:23 Versed 1 mg I.V. was administered by Noemi Ceballos RN; for sedation; 9:30:25 Effectiveness of Fentanyl delivered @ 9:24:36 is: Mostly sleeping 9:30:28 Effectiveness of Versed delivered @ 9:27:23 is: Mostly sleeping 9:38:08 Hawkone Medium Atherectomy System (H1-M) opened to sterile field. 9:38:16 SPIDER EMBOLIC PROTECTION DEVICE 3MM ([id number]) opened to sterile field. 9:39:53 Heparin Bolus 2000 units I.V. was administered by Noemi Ceballos RN; Per protocol; 9:47:41 Nitroglycerin IC/IA 300 mcg I.A. was administered by Brian Evangelista MD; Per protocol; 9:58:21 Versed 1 mg I.V. was administered by Noemi Ceballos RN; for sedation; 10:03:50 Effectiveness of Versed delivered @ 9:58:21 is: Mostly sleeping 10:05:22 FAMILY UPDATE 10:06:09 Nitroglycerin IC/IA 300 mcg I.A. was administered by Brian Evangelista MD; Per protocol; 10:16:38 Fentanyl 50 mcg I.V. was administered by Noemi Ceballos RN; for sedation; 10:21:30 Effectiveness of Fentanyl delivered @ 10:16:38 is: Mostly sleeping 10:23:14 Heparin Bolus 2000 units I.V. was administered by Noemi Ceballos RN; Per protocol; 10:23:15 Inflate balloon Inflation number: 1 A IN.PACT Admiral 4 x 120 x 130 DCB Balloon ([id number]) was prepped and advanced across the Undefined1, then inflated to 0 MIREYA for 2:27 (min:sec). 10:27:30 Inflate balloon Inflation number: 2 A IN.PACT Admiral 5 x 150 x 130 DCB balloon ([id number]) was prepped and advanced across the Undefined1, then inflated to 0 MIREYA for 2:52 (min:sec). 10:29:48 Fentanyl 50 mcg I.V. was administered by Noemi Ceballos RN; for sedation; 10:30:52 Versed 1 mg I.V. was administered by Noemi Ceballos RN; for sedation; 10:32:10 Effectiveness of Fentanyl delivered @ 10:29:48 is: Dozing intermittentl y 10:32:15 Effectiveness of Versed delivered @ 10:30:52 is: Dozing intermittently 10:32:24 Versed 1 mg I.V. was administered by Noemi Ceballos RN; for sedation; 10:34:14 Inflate balloon Inflation number: 3 A IN.PACT Admiral 6 x 150 x 130 DCB balloon ([id number]) was prepped and advanced across the Undefined1, then inflated to 0 MIREYA for 3:00 (min:sec). 10:35:16 Effectiveness of Versed delivered @ 10:32:24 is: Mostly sleeping 10:37:32 Inflate balloon Inflation number: 4 A IN.PACT Admiral 7 x 80 x 130 DCB Balloon ([id number]) was prepped and advanced across the Undefined1, then inflated to 0 MIREYA for 2:53 (min:sec). 10:44:28 6 X 100 EVERFLEX STENT DEPLOYED LOT#[id number] 10:48:57 SHEATH 6FR Lissie (JVW223) opened to sterile field. 10:56:36 MYNX PROCUREMENT TECHNICIAN 6FR/7FR (TN7324) opened to sterile field. 10:57:24 Sheath removed intact; hemostasis achieved with Mynx Front End Developer Javascript Html Css 6Fr/7Fr to th e Right Femoral artery. 10:57:27 Procedure ended.(Physican Out) 11:06:46 Fluoroscopy time 29.20 minutes. 11:06:51 Fluoroscopy dose: 466 mGy 11:06:51 Flurop Dose total: 466 11:06:58 Contrast amount:Isovue 300 125ml. 11:07:00 Sharps counted by scrub and verified by R.N. 11:07:02 Insertion/operative site no bleeding no hematoma. 11:07:07 Post-op/insertion site Right Femoral artery dressed using a 4 x 4 and Tegaderm. 11:07:10 Post right femoral artery:stable 11:07:17 Post procedure: right dorsailis pedis pulse Doppler. 11:07:21 Post procedure: left dorsailis pedis pulse 1+ Palpable, but thready & weak; easily obliterated. 11:07:25 Post procedure: right posterior tibial pulse Doppler. 11:07:29 Post procedure: left posterior tibial pulse Doppler. 11:07:33 Post procedure instruction explained to patient.Patient verbalizes understanding. 11:07:34 Procedure and supply charges have been captured, reviewed, submitted an d are correct. 11:14:41 Report given to Outpatients. 11:14:44 Patient transfered to Outpatients with Stretcher. 11:15:15 Vital chart was stopped Intervention Summary Intervention Notes Time ActionType Lesion and Equipment Used Action# Pressure Duration Attributes 10:23:15 Inflate Undefined1 IN.PACT 1 0 02:27 balloon Admiral 5 x 120 x 130 DCB Balloon ([id number]) 10:27:30 Inflate Undefined1 IN.PACT 2 0 02:52 balloon Admiral 5 x 150 x 130 DCB balloon ([id number]) 10:34:14 Inflate Undefined1 IN.PACT 3 0 03:00 balloon Admiral 6 x 150 x 130 DCB balloon ([id number]) 10:37:32 Inflate Undefined1 IN.PACT 4 0 02:53 balloon Admiral 7 x 80 x 130 DCB Balloon ([id number]) Device Usage Item Name Manufacture Quantity Catalog Number [facility] Minimal Lot# / Charge Number Stock Stock Serial# Code ACIST Syringe Acist 1 96413 600286 497527 748528 20 (62250) Medical Systems Inc ACIST Hand Acist 1 20272 171868 600857 115280 5 Control (94857) [employer] Inc ACIST Manifold Acist 1 52194 461196 203640 647494 5 (19565) Medical Systems Inc Bag Decanter Microtek 1 2001S 507849 29734 217031 5 (2001S) Medical Inc. Sterile Cardinal 1 [id number] 996124 843226 5 Angiographic Health Pack Tegaderm 4 x 4 3M 1 1626W 349914 295805 276884 5 (1626W) Micropuncture VSI VASCULAR 1 7266V 153879 681379 5 VSI 4FR kit SOLUTIONS SHEATH 5FR Terumo 1 GHU851 202353 578056 782976 40 Lissie (BVS005) BENTSON 145cm Cook [employer] 1 D46281 205794 773899 5 wire (Z62469) TUBING Contrast Merit 1 NOE240C 926953 739018 216131 5 Injection High Medical Pressure (HGC301Z) MOLINA 260 wire [facility] 1 L63859 432800 60105 490951 5 9152301 (I91146) SHEATH 6FR Terumo 1 RSR01 704305 59106 697445 5 Destination (RSR01) DIAGNOSTIC IMT [facility] 1 [id number] 164368 231958 46262 5 5Fr Catheter Scientific (147803826) CHOICE PT Extra [facility] 1 [id number] 182322 400799 790943 5 [id number] Support J 300cm Scientific guide wire (0998050F6) GLIDE WIRE Merit 1 [id number] 770132 368630 020116 5 [id number] MERIT Angled Medical 260cm ([id number]) CXI SUPPORT [facility] 1 Z46334 067728 532469 948203 5 [id number] .035 135 CM STR catheter (X73197) ROADRUNNER .035 [facility] 1 D23862 457244 311521 400863 5 2368138 260 glide wire (A49963) Enteer Re-entry Medtronic 2 [id number]-[id number] 301060 172085 285548 1 E044394 cath 3.75 [id number] STOPCOCK 3-Way [facility] 1 Z84424 211070 6929 556560 5 [id number] Large Bore (E60566) CXI SUPPORT [facility] 1 Y53526 114164 870765 133120 5 [id number] .018 150CM STR catheter (T06743) Hawkone Medium Medtronic 1 H1-M 319470 805120 92 5 Atherectomy System (H1-M) SPIDER EMBOLIC Medtronic 1 [id number]-958-320 431159 885100 5 PROTECTION DEVICE 3MM ([id number]) IN.PACT Admiral Medtronic 1 [id number] 227585 848518 031261 5 [id number] 5 x 120 x 130 DCB Balloon ([id number]) IN.PACT Admiral Medtronic 1 [id number] 304370 0720444 424041 5 5 x 150 x 130 DCB balloon ([id number]) IN.PACT Admiral Medtronic 1 [id number] 306827 3359931 745008 5 [id number] 6 x 150 x 130 DCB balloon ([id number]) IN.PACT Admiral Medtronic 1 [id number] 728492 191824 5 [id number] 7 x 80 x 130 DCB Balloon ([id number]) SHEATH 6FR Terumo 1 KIE982 391023 825998 481757 40 Lissie (FQK224) MYNX PROCUREMENT TECHNICIAN Access 1 HO1259 008756 427771 5 [id number] 6FR/7FR Closure (EH8724) Signature Audit [place] Stage Time Signature Unsigned Intra-Procedure 11/27/2017 Elroy 11:15:11 AM Nathan RT (R) (CV) Signatures Monitor : Elroy Signature : Nathan RT Date : Time : [id number] [place] [address]
[2017-11-27 06:06] LABS: BASOPHILS 0.2 % (0-2); EOSINOPHILS 1.5 % (0-7); HEMATOCRIT 37.6 % (36.0-48.0); HEMOGLOBIN 11.9 g/dL (12-16); IMMATURE GRANULOCYTES 0.4 % (0-5); MCHC 31.6 g/dL (31.0-37.0); MCV 82.3 fL (80.0-100.0); MEAN PLATELET VOLUME 9.1 fL (7.4-10.4); MONOCYTES 21.7 % (2-11); NEUTROPHILS 42.2 % (40-80); RBC 4.57 10x6/uL (4.00-5.40); WBC 5.2 10x3/uL (4.8-10.8)
[2017-11-27 06:08] LABS: PLATELET COUNT 121 10x3/uL (130-400)
[2017-11-27 06:18] LABS: ANION GAP 12.1 mmol/L (8-16); CALCIUM 8.8 mg/dL (8.5-10.1); CARBON DIOXIDE 30.2 mmol/L (21.0-32.0); POTASSIUM - SERUM 3.3 mmol/L (3.5-5.1)
[2017-11-27 06:20] LABS: APTT 25.1 SECONDS (22.8-39.4); INR 0.96 (0.85-1.17); PROTIME 12.4 SECONDS (11.6-15.0)
[2017-11-27 07:02] VITALS: Ht 170.2 cm; Wt 93.2 kg
== END 2017-11-27 16:35 | disposition home or self-care (01) ==
LOC: D.SP 05:44 → D.RAD 08:00 → D.SP 08:00
PROVIDERS: Radiology Diagnostic Radiology
DX: I70.222 Atherosclerosis of native arteries of extremities with rest pain, left leg (principal); I70.92 Chronic total occlusion of artery of the extremities; Z01.812 Encounter for preprocedural laboratory examination

== ENCOUNTER → 2018-04-15 07:34 | Outpatient (CLI) | payer MEDICARE, OTHER ==
[2017-11-27 07:02] VITALS: BMI 32.2
== END | disposition home or self-care (01) ==
LOC: D.MRI 07:34
DX: M75.122 Complete rotator cuff tear or rupture of left shoulder, not specified as traumatic (principal); X58.XXXA Exposure to other specified factors, initial encounter